=== PATIENT | male | born 1960 | race Caucasian/White ===

== ENCOUNTER 2021-11-05 09:02 | Outpatient (REF) | payer OTHER, SELFPAY ==
[2021-11-05 09:30] LABS: MANUAL DIFF FLAG NO
[2021-11-05 09:52] LABS: Basophils Percent Auto 0.4 % (0-2); Eosinophils Absolute Auto 0.3 X10*3/uL (0.0-0.4); Hematocrit 45.7 % (42.0-52.0); Hemoglobin 15.9 g/dl (14.0-18.0); Imm Gran Abs Auto 0.01 X10*3/uL (0.00-0.03); Imm Gran Pct Auto 0.2 % (0.0-0.4); Lymphocytes Absolute Auto 1.9 X10*3/uL (1.2-4.9); Lymphocytes Percent Auto 42.5 % (20-40); Mean Corpuscular HGB Conc 34.8 g/dl (31.0-36.0); Mean Corpuscular Hemoglobin 32.4 pg (27.0-33.0); Mean Corpuscular Volume 93.1 fL (80.0-98.0); Mean Platelet Volume 10.1 fL (9.4-12.4); Monocytes Absolute Auto 0.5 X10*3/uL (0.1-1.2); Monocytes Percent Auto 11.5 % (2-11); Neutrophils Absolute Auto 1.7 x10*3/uL (2.0-8.3); Neutrophils Percent Auto 38.4 % (45-73); Platelet Count 205 X10*3/uL (160-400); Red Blood Count 4.91 X10*6/uL (4.60-5.80); Red Cell Distribution Width 13.1 % (11.0-16.0); White Blood Count 4.5 X10*3/uL (4.8-10.8)
[2021-11-05 10:07] LABS: Estimated Average Glucose 117 mg/dL; Hemoglobin A1c % 5.7 %
[2021-11-05 10:15] LABS: Alanine Aminotransferase 126 U/L (0-40); Albumin Level 4.1 g/dL (3.5-5.0); Alkaline Phosphatase 53 U/L (39-117); Anion Gap 9 (12-20); Aspartate Amino Transferase 74 U/L (5-37); Bilirubin Total 0.9 mg/dL (0.0-1.0); Blood Urea Nitrogen 17 mg/dL (9-16); Calcium 9.5 mg/dL (8.4-10.2); Carbon Dioxide 29 mmol/L (22-29); Chloride 105 mmol/L (96-108); Cholesterol 168 mg/dL; Estimated Glomerular Filt Rate > 60; Glucose Fasting 101 mg/dL (60-99); HDL Cholesterol 41 mg/dL; LDL Cholesterol Calculated 109 mg/dl; Potassium 4.3 mmol/L (3.3-5.1); Sodium 139 mmol/L (135-145); Total Protein 7.5 g/dL (6.5-8.0); Triglycerides 91 mg/dL
[2021-11-05 10:37] LABS: Prostate Specific Antigen Scr 0.74 ng/mL (<0.05-4.0); TSH reflex Free T4 1.25 uIU/mL (0.32-4.0)
== END 2021-11-05 09:03 | disposition home or self-care (01) ==
LOC: HO.LAB 09:02
PROVIDERS: PCP Nurse Practitioner Family; Visit Provider Nurse Practitioner Family
DX: Z12.5 Encounter for screening for malignant neoplasm of prostate (principal); E78.00 Pure hypercholesterolemia, unspecified; R25.1 Tremor, unspecified; I10 Essential (primary) hypertension; E11.9 Type 2 diabetes mellitus without complications; Z76.89 Persons encountering health services in other specified circumstances
CPT/HCPCS: 36415; 80053; 80061; 83036; 84153; 84443; 85025

== ENCOUNTER 2021-11-24 08:24 | Outpatient (REF) | payer OTHER, SELFPAY ==
[2021-11-24 09:45] LABS: Alanine Aminotransferase 123 U/L (0-40); Albumin Level 4.3 g/dL (3.5-5.0); Alkaline Phosphatase 51 U/L (39-117); Aspartate Amino Transferase 76 U/L (5-37); Bilirubin Direct 0.4 mg/dL (0.0-0.5); Bilirubin Total 0.9 mg/dL (0.0-1.0); Gamma Glutamyl Transpeptidase 161 U/L (11-51); Total Protein 7.7 g/dL (6.5-8.0)
[2021-11-24 10:04] LABS: Folate 12.1 ng/mL (> or = 4.0); Vitamin B12 467 pg/mL (200-900)
[2021-11-28 10:26] LABS: Vitamin B6 13.8 ng/mL (2.1-21.7)
== END 2021-11-24 08:25 | disposition home or self-care (01) ==
LOC: HO.LAB 08:24
PROVIDERS: Visit Provider Nurse Practitioner Family
DX: R25.1 Tremor, unspecified (principal); R79.89 Other specified abnormal findings of blood chemistry
CPT/HCPCS: 36415; 80076; 82607; 82746; 82977; 84207

== ENCOUNTER 2022-01-13 14:44 | Outpatient (REF) | payer OTHER, SELFPAY ==
[2022-01-13 16:09] LABS: Syphilis Screen Nonreactive (Nonreactive)
[2022-01-14 08:35] LABS: HBS Num1 288.99 mIU/mL (0-7.99); HBc Num1 4.34 S/CO (0.00-0.79); ~HepC Num1 14.36 S/CO (0.00-0.79); ~Hepatitis B Surface Antibody REACTIVE (Nonreactive); ~Hepatitis C Antibody Reactive (Nonreactive)
[2022-01-14 08:47] LABS: Hepatitis B Surface Antigen Negative (Negative)
[2022-01-14 10:19] LABS: HBc Num2 4.42 S/CO; HBc Num3 4.39 S/CO; Hepatitis B Core Antibody Reactive (Nonreactive)
[2022-01-15 05:17] LABS: Lyme Abs Screen <0.90 index
[2022-01-15 09:03] LABS: HBsAGNum1 0.18 S/CO (0.00-0.99); Hepatitis A Antibody IgM 0.64 Index (0-0.79); ~Hepatitis A Antibody IgM Nonreactive (Nonreactive)
== END 2022-01-13 14:45 | disposition home or self-care (01) ==
LOC: HO.LAB 14:44
PROVIDERS: Visit Provider Psychiatry & Neurology Neurology
DX: G20 Parkinson's disease (principal)
CPT/HCPCS: 36415; 86617; 86618; 86704; 86706; 86709; 86780; 86803; 87340

== ENCOUNTER 2022-01-26 11:25 | Outpatient (REF) | payer OTHER, SELFPAY ==
[2022-01-27 08:00] LABS: ~HepC Num1 15.43 S/CO (0.00-0.79); ~Hepatitis C Antibody Reactive (Nonreactive)
[2022-01-30 16:06] LABS: HCV Log PCR 6.79 Log IU/mL (NOT DETECTED); HepC Viral Load 6230000 IU/mL (NOT DETECTED)
== END 2022-01-26 11:26 | disposition home or self-care (01) ==
LOC: HO.LAB 11:25
PROVIDERS: PCP Nurse Practitioner Family; Visit Provider Nurse Practitioner Family
DX: R79.89 Other specified abnormal findings of blood chemistry (principal)
CPT/HCPCS: 36415; 86803; 87522

== ENCOUNTER 2022-02-10 15:06 | Outpatient (REF) | payer OTHER, SELFPAY ==
[2022-02-10 16:07] LABS: INTERNATIONAL NORM RATIO 1.1 (0.9-1.1); Prothrombin Time 12.4 SEC (9.9-13.0)
[2022-02-11 08:45] LABS: HIV Num 1 2.65 S/CO (0.00-0.99)
[2022-02-11 10:43] LABS: HIV AB/AG Nonreactive (Nonreactive); HIV Num 2 0.07 S/CO; HIV Num 3 0.09 S/CO
[2022-02-12 03:52] LABS: Hepatitis A Antibody IgG REACTIVE (Nonreactive); ~Hepatitis A Antibody IgG 5.63 S/CO (0.00-0.99)
[2022-02-13 00:26] LABS: TS Negative Control Passed; TS Panel A 0; TS Panel B 0; TS Positive Control Passed; TSpotTB Negative (Negative)
[2022-02-14 11:11] LABS: Hepatitis B Viral DNA Qn - cp <1.00 NOT DETECTED Log IU/mL (NOT DETECTED); Hepatitis B Viral DNA Qn-IU/mL <10 NOT DETECTED IU/mL (NOT DETECTED)
[2022-02-15 18:01] LABS: Hepatitis C Genotype 1b
[2022-02-16 19:40] LABS: FIB-ALT 95 U/L (9-46); FIB-Alpha-2-Macroglobulin 413 mg/dL (106-279); FIB-Apolipoprotein A1 146 mg/dL (94-176); FIB-GGT 129 U/L (3-70); FIB-Haptoglobin 71 mg/dL (43-212); FIB-Total Bilirubin 0.4 mg/dL (0.2-1.2); Liver Fibrosis Stage F4; Nec Inflam Act Grade A3; Nec Inflam Act Score 0.72
[2022-02-18 00:53] LABS: Hepatitis Delta Antibody NEGATIVE
== END 2022-02-10 15:07 | disposition home or self-care (01) ==
LOC: HO.LAB 15:06
PROVIDERS: PCP Nurse Practitioner Family; Visit Provider Internal Medicine
DX: B19.20 Unspecified viral hepatitis C without hepatic coma (principal); B19.10 Unspecified viral hepatitis B without hepatic coma; R79.89 Other specified abnormal findings of blood chemistry; Z87.891 Personal history of nicotine dependence
CPT/HCPCS: 36415; 81596; 85610; 86481; 86692; 86708; 87389; 87517; 87902; 99202

== ENCOUNTER 2022-02-16 10:55 | Outpatient (REF) | payer OTHER, SELFPAY ==
--- NOTE | ~2022-02-16 | MR_ITS ---
MRI OF THE BRAIN WITHOUT IV CONTRAST INDICATION: Parkinson's disease. COMPARISON: None available. TECHNIQUE: Multiplanar multisequence MR imaging of the brain was obtained without IV contrast. FINDINGS: There is no hydrocephalus, extra-axial surface collection, or herniation. There is mild chronic microangiopathy. The major flow voids at the skull base are preserved. There is no acute infarct on diffusion-weighted imaging. There is no intracranial hemorrhage on the gradient recalled echo acquisition. The midline structures are normal. The cerebellar tonsils are normally positioned. The cerebellum and brainstem are normal. The craniocervical junction is normal. Osseous marrow signal intensity is homogenous. The visualized soft tissues are unremarkable. Mild mucosal thickening within the maxillary sinuses and ethmoid air cells bilaterally. MR/MR head/brain wo con IMPRESSION: - No acute intracranial findings. - There is mild chronic microangiopathy.
== END 2022-02-16 10:56 | disposition home or self-care (01) ==
LOC: HO.MRI 10:55
PROVIDERS: Visit Provider Psychiatry & Neurology Neurology
DX: G20 Parkinson's disease (principal)
CPT/HCPCS: 70551

== ENCOUNTER → 2022-03-23 14:38 | Outpatient (BNVA) | payer OTHER, SELFPAY | PROVIDERS: PCP Nurse Practitioner Family; Visit Provider Internal Medicine | DX: B19.20 Unspecified viral hepatitis C without hepatic coma (principal); B19.10 Unspecified viral hepatitis B without hepatic coma | CPT/HCPCS: 99212 ==

== ENCOUNTER → 2022-04-27 13:02 | Outpatient (BNVA) | payer OTHER, SELFPAY | PROVIDERS: PCP Nurse Practitioner Family; Visit Provider Internal Medicine | DX: B19.20 Unspecified viral hepatitis C without hepatic coma (principal) | CPT/HCPCS: 99212 ==

== ENCOUNTER 2022-05-13 08:43 | Outpatient (REF) | payer OTHER, SELFPAY ==
--- NOTE | ~2022-05-13 | US_ITS ---
EXAMINATION: US ABDOMEN COMPLETE CLINICAL INFORMATION: Unspecified viral hepatitis C without hepatic coma. COMPARISON: None TECHNIQUE: Real-time imaging of the abdominal viscera. FINDINGS: PANCREAS: Pancreas demonstrate atrophic appearance. ABDOMINAL AORTA: The proximal, mid, and distal segments are normal in caliber. INFERIOR VENA CAVA: Visualized portions are normal. LIVER: The liver is normal in size. The liver contour is normal. Increased hepatic echogenicity suggesting hepatic steatosis. No focal hepatic lesion. There is no intrahepatic biliary duct dilatation seen. GALLBLADDER: Normal. The gallbladder is physiologically distended without evidence of stones, sludge, polyps, wall thickening or pericholecystic fluid. COMMON BILE DUCT: Normal in caliber measuring 0.3 cm in diameter. RIGHT KIDNEY: Multiple echogenic foci without artifact possibly representing calculi. No hydronephrosis. No renal calculi or focal parenchymal lesions. The kidney measures 11.4 cm in maximum dimension. LEFT KIDNEY: Multiple echogenic foci without artifact possibly representing calculi. No hydronephrosis. No renal calculi or focal parenchymal lesions. The kidney measures 10.8 cm in maximum dimension. SPLEEN: Normal. The spleen measures 10.5 cm in maximum dimension. FREE FLUID: None. US/US abdomen complete IMPRESSION: 1. Increased hepatic echogenicity suggesting hepatic steatosis. 2. Bilateral multiple echogenic foci without artifact possibly representing calculi.
== END 2022-05-13 08:44 | disposition home or self-care (01) ==
LOC: HO.US 08:43
PROVIDERS: Visit Provider Internal Medicine
DX: B19.20 Unspecified viral hepatitis C without hepatic coma (principal)
CPT/HCPCS: 76700

== ENCOUNTER 2022-06-11 09:34 | Outpatient (REF) | payer OTHER, SELFPAY ==
[2022-06-14 12:43] LABS: HCV Log PCR <1.18 NOT DETECTED Log IU/mL (NOT DETECTED); HepC Viral Load <15 NOT DETECTED IU/mL (NOT DETECTED)
== END 2022-06-11 09:35 | disposition home or self-care (01) ==
LOC: HO.LAB 09:34
PROVIDERS: Visit Provider Internal Medicine
DX: B19.20 Unspecified viral hepatitis C without hepatic coma (principal)
CPT/HCPCS: 36415; 87522

== ENCOUNTER → 2022-06-29 10:04 | Outpatient (BNVA) | payer OTHER, SELFPAY | PROVIDERS: PCP Nurse Practitioner Family; Visit Provider Internal Medicine | DX: B19.20 Unspecified viral hepatitis C without hepatic coma (principal) | CPT/HCPCS: 99212 ==

== ENCOUNTER 2022-07-16 07:44 | Day surgery (SDC) | payer OTHER, SELFPAY ==
[2022-07-13 14:56] VITALS: BMI 29.7
--- NOTE | 2022-07-15 13:37 | P.CONAN_ITS ---
Documented by User: Sharon Ryan NP 07/15/22 13:39 HPI - Anesthesia Eval Consult details Narrative: 62yo M for Colonoscopy PMFSH Active Problems Active Problems: All Active Problems (Updated 06/29/22 @ 22:41 by Torri Landaverde MD) Hepatitis B (Acute) Hepatitis C virus infection (Acute) Elevated LFTs (Acute) Anxiety and depression (Acute) Tremor of right hand (Acute) Elevated blood pressure reading (Acute) Encounter to establish care (Acute) Past Medical History Medical History Hepatitis B Parkinson disease Family History Family History Mother Vaginal cancer Father Diabetes Family/Other Mental health disorder Surgical History Surgical History History of cardiac catheterization History of knee surgery Social History Social History Housing: Apartment Alcohol intake: former Patient Tobacco Use Status: Former Tobacco user Tobacco use type: Cigarette e-Cigarette/Vaping Use: Never Used Second Hand Smoke Exposure: No Use of substances other than those prescribed or required for medical reasons: No Are you DNR?: No Advance Directives: No Advance Directives Information Provided: Yes service: No Current occupational status: retired Cognitive needs: No Hearing needs: No Vision needs: No Meds Allergies Allergy/AdvReac Type Severity Reaction Status Date / Time codeine Allergy Mild nausea Verified 06/29/22 10:12 Home Medications Medication Instructions Recorded Confirmed Last Taken Type carbidopa 25 mg-levodopa 100 mg 1 tab PO TID 01/19/22 07/16/22 History tablet sertraline 25 mg tablet 25 mg PO DAILY 06/29/22 07/16/22 History trihexyphenidyl 2 mg tablet 2 mg PO DAILY 06/29/22 Unknown History Exam Exam Date and Time: July 15, 2022 1337 Height,Weight and Vital Signs: Height 5 ft 7 in Weight 86.183 kg Assessment and Plan Assessment Anesthesia Assessment: Chart Reviewed Documented by User: Odalis Jackson MD 07/16/22 10:12 [facility] Past Medical History Medical History Hepatitis B Parkinson disease Family History Family History Mother Vaginal cancer Father Diabetes Family/Other Mental health disorder Family history of problems with anesthesia: No Surgical History Surgical History History of cardiac catheterization History of knee surgery History of Problems with Anesthesia: No Social History Social History Housing: Apartment Alcohol intake: former Patient Tobacco Use Status: Former Tobacco user Tobacco use type: Cigarette e-Cigarette/Vaping Use: Never Used Second Hand Smoke Exposure: No Use of substances other than those prescribed or required for medical reasons: No Are you DNR?: No Advance Directives: No Advance Directives Information Provided: Yes service: No Current occupational status: retired Cognitive needs: No Hearing needs: No Vision needs: No Meds Allergies Allergy/AdvReac Type Severity Reaction Status Date / Time codeine Allergy Mild nausea Verified 06/29/22 10:12 Home Medications Medication Instructions Recorded Confirmed Last Taken Type carbidopa 25 mg-levodopa 100 mg 1 tab PO TID 01/19/22 07/16/22 History tablet sertraline 25 mg tablet 25 mg PO DAILY 06/29/22 07/16/22 History trihexyphenidyl 2 mg tablet 2 mg PO DAILY 06/29/22 Unknown History Exam Airway Mallampati Class: III (Missing one tooth on top, limited mouth opening) TM Dist: >3cm Neck ROM: Full Heart: rrr Lungs: cta Assessment and Plan Assessment Anesthesia Assessment: Anesthesia Plan Discussed and Chart Reviewed Final Anesthetic Review Family History of Problems with Anesthesia: No History of Problems with Anesthesia: No NPO: Yes ASA Class: III Final Preanesthetic Review: No Changes in Pt Med Stat, Meds/Allgs Chart Reviewed and Consent Obtained/Reviewed Patient Risk: Intermediate Procedure Risk: Intermediate Anesthetic Plan Anesthetic Plan: MAC: Disposition: Standard PACU
[2022-07-16 08:04] VITALS: BP 131/89; PULSE 92; RESP 16; TEMP 36.8; O2SAT 98; BMI 28.1
[2022-07-16 08:18] VITALS: BMI 28.1
[2022-07-16] MEDS: Lactated Ringers 1,000 ML 100 ML IVCONT (08:54)
--- NOTE | 2022-07-16 10:09 | MHC.SHP ---
Pre-Procedural Eval Section A Date of Service: 07/16/22 The patient is an INPATIENT: No The History & Physical has been completed within 30 days and I have reviewed it.: No Section B Chief Complaint: screening Details of Present Illness: Colon cancer screening Relevant Family History (Specify if Yes): No Relevant Social History: Tobacco Use (Formal smoker) Present Medications: see Short Stay Collaborative assessment Medical History: Significant History (Parkinson's disease, anxiety and depression, hepatitis-B) History of Previous Operations: Relevant previous surgery/procedure and date(s) (History of cardiac catheterization History of knee surgery) Allergies: Allergies Allergy/AdvReac Type Severity Reaction Status Date / Time codeine Allergy Mild nausea Verified 06/29/22 10:12 Review of Systems Sugical H&P ROS: Negative: Constitution, Cardiovascular, Respiratory and Gastrointestinal Exam Surgical H&P Exam: Normal: Heart, Normal: Lungs, Normal: Extremities and Normal: Abdomen and Significant Findings: Neurological (tremors due to Parkinson's disease) Plan Diagnosis/Plan: Unchanged I have reviewed the history and physical and performed a pertinent physical examination on my patient. No changes have occurred unless specified.
--- NOTE | 2022-07-16 10:18 | W.PM.OPN ---
Operative Note Operative Note Date of Service: 07/16/22 Narrative: Pre-op diagnosis: Pt was referred for Direct Access Colonoscopy by his PCP. Colon cancer screening (1st colonoscopy). Patient denies symptoms of change in bowel habits or rectal bleeding. Patient denies any personal or family history of colon polyps or colon cancer Post-op diagnosis:?other (Colon polyp, diverticulosis) Procedure: COLONOSCOPY TILL CECUM WITH BIOPSIES Consent: Indications for the procedure and potential complications of bleeding, perforation, reaction to medications and missed diagnosis were discussed with the patient and informed consent was obtained. Instrument: Olympus PCF H 190 L variable stiffness pediatric colonoscope Monitoring: Vital signs and clinical assessment, intermittent blood pressure monitoring, continuous EKG monitoring, Pulse oximetry and Carbon Dioxide monitoring were done throughout the procedure. Colon withdrawl time was 29 minutes. Procedure: The patient was placed in the left lateral decubitis position and pre-procedure medications were administered. After a digital rectal examination of the ano-rectum, the video colonoscope was inserted into the rectum and advanced through the colon to the cecum. The colonoscope was slowly withdrawn in a retrograde panoramic fashion and the colon mucosa was carefully examined including a retroflexed view of the rectum. Findings and interventions are described below. Procedure Difficulty: Without difficulty Findings: Terminal Ileum: Not evaluated Cecum:? Normal Ascending Colon:? Normal Transverse Colon:? A 5-6 mm sessile polyp removed with a cold bx Descending Colon:? Normal Sigmoid Colon:? Normal Rectum:? Normal Ano-rectum:? Moderate internal hemorrhoids Colon preparation:? Good after copious irrigation and fair in some areas of the colon and rectum due to undigested vegetable matter which could not be suctioned Impression and Post Procedure Diagnosis: Colonoscopy Findings: One small polyp removed Moderate hemorrhoids on retroflexed exam. Plan: Pt will be sent a letter with pathology results Repeat Colonoscopy interval based on path results - in 3 years if polyps are adenomatous and due to fair prep in some areas of the colon (needs dulcolax 2 tab daily starting 5 days prior to the colonoscopy for future colonoscopies). Above findings were reviewed with the patient and colon polyps handout? was given in the discharge area Surgeon: Demi Yoon MD Anesthesia:?MAC Was an Fire Alarm Technician used for this Procedure?:?Yes Fire Alarm Technician:?Ruel Salinas Estimated blood loss (mL):?0 Pathology:?other (A- TRANSVERSE COLON POLYP) Condition:?stable Disposition:?PACU
[2022-07-16 11:09] VITALS: BP 102/66; PULSE 77; RESP 16; TEMP 36.8; O2SAT 98
[2022-07-16 11:24] VITALS: BP 118/82; PULSE 77; RESP 16; TEMP 36.8; O2SAT 96
== END 2022-07-16 11:25 | disposition home or self-care (01) ==
PROVIDERS: Visit Provider Internal Medicine Gastroenterology
PROC: 0DJD8ZZ Inspection of Lower Intestinal Tract, Via Natural or Artificial Opening Endoscopic (ICD-10-PCS; CPT 45378; principal; 2022-07-16 09:20)
DX: Z12.11 Encounter for screening for malignant neoplasm of colon (principal); K63.5 Polyp of colon; K57.30 Diverticulosis of large intestine without perforation or abscess without bleeding; K64.8 Other hemorrhoids; G20 Parkinson's disease; B19.10 Unspecified viral hepatitis B without hepatic coma; F41.8 Other specified anxiety disorders; Z79.899 Other long term (current) drug therapy; Z88.8 Allergy status to other drugs, medicaments and biological substances; Z98.890 Other specified postprocedural states; Z87.891 Personal history of nicotine dependence
CPT/HCPCS: 45380; 88305

== ENCOUNTER 2022-07-27 07:09 | Outpatient (REF) | payer OTHER, SELFPAY ==
--- NOTE | ~2022-07-27 | XR_ITS ---
EXAMINATION: XR SHOULDER, LEFT CLINICAL INFORMATION: Left shoulder pain COMPARISON: None TECHNIQUE: AP external rotation, Grashey, scapular Y, and axillary views of the left shoulder. FINDINGS: Mild glenohumeral osteoarthritis with small marginal osteophytes. No fracture, alignment. Mild osteoarthritis of the acromioclavicular joint. XR/XR shoulder LT min 2V IMPRESSION: Mild glenohumeral and acromioclavicular osteoarthritis.
[2022-07-27 08:07] LABS: Alanine Aminotransferase 16 U/L (0-40); Albumin Level 4.4 g/dL (3.5-5.0); Alkaline Phosphatase 58 U/L (39-117); Anion Gap 15 (12-20); Aspartate Amino Transferase 17 U/L (5-37); Bilirubin Direct 0.3 mg/dL (0.0-0.5); Bilirubin Total 0.8 mg/dL (0.0-1.0); Blood Urea Nitrogen 12 mg/dL (9-16); Calcium 9.3 mg/dL (8.4-10.2); Carbon Dioxide 25 mmol/L (22-29); Chloride 106 mmol/L (96-108); Estimated Glomerular Filt Rate > 60; Glucose Random 99 mg/dL (60-115); Sodium 142 mmol/L (135-145); Total Protein 7.6 g/dL (6.5-8.0)
[2022-07-27 08:28] LABS: TSH reflex Free T4 1.34 uIU/mL (0.32-4.0)
[2022-07-27 08:43] LABS: HIV AB/AG Nonreactive (Nonreactive); HIV Num 1 0.07 S/CO (0.00-0.99)
== END 2022-07-27 07:10 | disposition home or self-care (01) ==
LOC: HO.LAB 07:09
PROVIDERS: PCP Physician Assistant; Visit Provider Physician Assistant
DX: M25.512 Pain in left shoulder (principal); B19.20 Unspecified viral hepatitis C without hepatic coma; R63.4 Abnormal weight loss; R79.89 Other specified abnormal findings of blood chemistry; I10 Essential (primary) hypertension; G89.29 Other chronic pain; Z11.3 Encounter for screening for infections with a predominantly sexual mode of transmission
CPT/HCPCS: 36415; 73030; 80048; 80076; 84443; 87389

== ENCOUNTER 2022-08-06 13:10 | Outpatient (REF) | payer OTHER, SELFPAY ==
[2022-08-06 13:42] LABS: COVID-19 Test Negative (Negative)
== END 2022-08-06 13:11 | disposition home or self-care (01) ==
LOC: HO.LAB 13:10
PROVIDERS: Visit Provider Internal Medicine
DX: Z20.822 Contact with and (suspected) exposure to COVID-19 (principal)
CPT/HCPCS: 87635; C9803

== ENCOUNTER → 2022-10-07 12:59 | Outpatient (BNVA) | payer OTHER, SELFPAY | PROVIDERS: PCP Physician Assistant Medical; Visit Provider Orthopaedic Surgery | DX: M25.812 Other specified joint disorders, left shoulder (principal) | CPT/HCPCS: 20610; 99202; J1100 ==

== ENCOUNTER 2022-10-14 11:59 | Outpatient (REF) | payer OTHER, SELFPAY ==
--- NOTE | ~2022-10-14 | XR_ITS ---
EXAMINATION: X-RAY BILATERAL KNEES X-RAY RIGHT KNEE CLINICAL INFORMATION: Knee pain COMPARISON: None TECHNIQUE: AP bilateral knees one view. Right knee 2 views. FINDINGS: Right knee: Moderate to severe lateral compartment arthritis, joint space loss. Mild-moderate medial compartment arthritis. Mild patellofemoral compartment arthritis with marginal spurring. Small joint fluid. No acute fracture or dislocation is seen. No abnormal soft tissue calcification. Left knee: Mild medial compartment arthritis. XR/XR knee RT 2V IMPRESSION: Right knee: Tricompartment osteoarthritis. Moderate-severe lateral compartment arthritis. Left knee: Mild medial compartment arthritis.
--- NOTE | ~2022-10-14 | XR_ITS ---
EXAMINATION: X-RAY BILATERAL KNEES X-RAY RIGHT KNEE CLINICAL INFORMATION: Knee pain COMPARISON: None TECHNIQUE: AP bilateral knees one view. Right knee 2 views. FINDINGS: Right knee: Moderate to severe lateral compartment arthritis, joint space loss. Mild-moderate medial compartment arthritis. Mild patellofemoral compartment arthritis with marginal spurring. Small joint fluid. No acute fracture or dislocation is seen. No abnormal soft tissue calcification. Left knee: Mild medial compartment arthritis. XR/XR knee standing BI IMPRESSION: Right knee: Tricompartment osteoarthritis. Moderate-severe lateral compartment arthritis. Left knee: Mild medial compartment arthritis.
== END 2022-10-14 12:00 | disposition home or self-care (01) ==
LOC: HO.HOSX 11:59
PROVIDERS: Visit Provider Orthopaedic Surgery
DX: M17.11 Unilateral primary osteoarthritis, right knee (principal)
CPT/HCPCS: 20610; 73560; 73565; 99212; J1100

== ENCOUNTER → 2022-11-05 10:39 | Outpatient (BNVA) | payer OTHER, MEDICARE, SELFPAY | PROVIDERS: PCP Physician Assistant Medical; Visit Provider Orthopaedic Surgery | DX: M17.11 Unilateral primary osteoarthritis, right knee (principal) | CPT/HCPCS: 99212 ==

== ENCOUNTER → 2022-11-19 10:25 | Outpatient (BNVA) | payer OTHER, SELFPAY | PROVIDERS: PCP Physician Assistant; Visit Provider Orthopaedic Surgery | DX: M17.11 Unilateral primary osteoarthritis, right knee (principal); G20 Parkinson's disease; B19.10 Unspecified viral hepatitis B without hepatic coma; Z98.890 Other specified postprocedural states | CPT/HCPCS: 20610; 99212; J7318 ==

== ENCOUNTER 2023-05-26 15:18 | Outpatient (AMB) | payer MEDICARE, SELFPAY ==
[2023-05-26 15:22] VITALS: BP 132/84; PULSE 100; O2SAT 97; BMI 26.8
--- NOTE | 2023-05-26 15:22 | A.OFFPC_ITS ---
Vital Signs 05/26/23 15:22 Height 5 ft 7 in Weight 171 lb 2 oz BMI 26.8 BP 132/84 Blood Pressure Location Lt brachial Position Sitting Pulse 100 Pulse Source Pulse Oximeter Pulse Oximetry (%) 97 Oxygen Delivery Method Room Air Intake Visit Reasons: 6mth f/u Allergies codeine Allergy (Mild, Verified 05/26/23 15:44) nausea Medication List - Last Reconciled 05/26/23 by Fabio Nieto PA-C amlodipine 5 mg PO DAILY 90 days blood pressure test kit-medium As directed carbidopa-levodopa 25-100 mg 1 tab PO TID sertraline 25 mg PO DAILY trihexyphenidyl 2 mg PO DAILY Tobacco use date assessed: 05/26/23 Dental Screening Dental Screen Date: 05/26/23 Did you have a dental visit in the last 12 months?: No Did you have a dental problem in the last 6 months where you did not have access to dental care?: No Was dental information given to patient?: Patient declined HPI 6mth f/u HPI0 Details Patient is a 63-year-old male here today for follow-up visit.? Patient has a past medical history significant for parkinsonian syndrome, hepatitis-C . Concern--> HAs developed a rash over his torso after swimming in the ocean. Rash has been evident over the last month. He reports the rash is very itchy. . Hypertension: Blood pressure acceptable today in office. Continues on amlodipine 5 mg with good affect. He denies any chest discomfort, chest pain or dizziness. Parkinson's disease: Patient followed by a neurologist (Dr. christianson) and has been on carbidopa levodopa with improvement of his tremor. .. Hepatitis-C:? Patient has a history hepatitis C, recently treated by Infectious Disease specialist and most recent hepatitis C viral load undetectable. Laboratory Tests 11/05/21 02/10/22 06/11/22 09:28 15:55 09:43 RBC 4.91 Creatinine Liver Fibrosis ALT 95 H Hep C Viral Load <15 NOT DETECTED Hep C Viral Load L og <1.18 NOT DETECTE D 07/27/22 07:21 RBC Creatinine 0.78 Liver Fibrosis ALT Hep C Viral Load Hep C Viral Load L og PFSH Medical History Hepatitis B Parkinson disease Surgical History History of cardiac catheterization History of knee surgery Family History Mother Vaginal cancer Father Diabetes Family/Other Mental health disorder Social History Housing: Apartment Alcohol intake: former Patient Tobacco Use Status: Former Tobacco user Tobacco use type: Cigarette e-Cigarette/Vaping Use: Never Used Second Hand Smoke Exposure: No service: No Current occupational status: retired Cognitive needs: No Hearing needs: No Vision needs: No Questionnaire PHQ-9 Over the last 2 weeks, how often have you been bothered by any of the following problems? 2. Feeling down, depressed, or hopeless: nearly every day 3. Trouble falling or staying asleep, or sleeping too much: not at all 4. Feeling tired or having little energy: more than half the days 5. Poor appetite or overeating: nearly every day 6. Feeling bad about yourself - or that you are a failure or have let yourself or your family down: nearly every day 7. Trouble concentrating on things, such as reading the newspaper or watching television: more than half the days 8. Moving or speaking so slowly that other people could have noticed. Or the opposite - being so fidgety or restless that you have been moving around a lot more than usual: nearly every day 9. Thoughts that you would be better off or of hurting yourself in some way: not at all Depression Screening Interpretation: Positive Source: Developed by Drs. Luis Verma, Rica Borden, Logan Montes and colleagues, with an educational emili from [employer]. Thrive Questionnaire Date Thrive assessed: 05/26/23 I am a: Patient What is your living situation today?: I have a steady place to live Within the past 12 months, did the food you bought not last and you didn't have the money to get more?: Never true Within the past 12 months, did you worry whether your food would run out before you got money to buy more?: Never true Do you have trouble paying for medicines?: No Do you have trouble getting transportation to medical appointments?: No Do you have trouble paying your heating and electricity bill?: No Do you have trouble taking care of your child, family member or friend?: No Do you have trouble with day-to-day activities such as bathing, preparing meals, shopping, managing finances, etc.?: No Are you currently unemployed and looking for a job?: No Are you interested in more education?: No Currently or been in a relationship where the following occur: no concerns reported AUDIT C Alcohol Use Questionnaire (AUDIT-C) 1. How often do you have a drink containing alcohol?: Never 3. How often do you have six or more drinks on one occasion?: Never Total Score: 0 TOMER-7 AMB Questionnaire TOMER-7 Date TOMER - 7 assessed: 05/26/23 Feeling nervous, anxious, or on edge: 2 = More than half the days Not being able to stop or control worryin = More than half the days Worrying too much about different things: 0 = Not at all Trouble relaxin = More than half the days Being so restless that it is hard to sit still: 0 = Not at all Becoming easily annoyed or irritable: 0 = Not at all Feeling afraid as if something awful might happen: 1 = Several days Total TOMER-7 score (0-4 normal; 5-9 mild; 10-14 moderate; 15-21 severe): 7 Source: Developed by Drs. Luis Verma, Rica Borden, Logan Montes and colleagues, with an educational emili from [employer]. TOMER-7 Assessment Billing TOMER-7 Assessment Tool: TOMER-7 Assessment [id number] Review of Systems Const Denies headache(s) Eyes Denies loss of vision ENT Denies vertigo, Denies dizziness, Denies headache(s) and Denies sore throat Card Denies chest pain, Denies leg edema and Denies lightheadedness Resp Denies cough, Denies hemoptysis and Denies wheezing GI Denies abdominal pain, Denies melena, Denies constipation, Denies diarrhea and D enies vomiting Denies dysuria, Denies urinary frequency and Denies urinary urgency Musc Denies arthralgias, Denies joint swelling, Denies numbness and Denies tingling Neuro Denies Abnormal speech present, Denies behavioral changes, Denies vertigo, Denies dizziness, Denies headache(s), Denies loss of vision, Denies memory loss, Denies numbness and Denies tingling Psych Denies anxiety, Denies behavioral changes, Denies depression, Denies memory loss and Denies panic attacks Matthieu/Lymph Denies easy bleeding and Denies easy bruising Aller/Immun Denies wheezing Physical exam (Primary Care) Vital Signs: Last Vital Signs Pulse 100 05/26/23 15:22 BP 132/84 05/26/23 15:22 Pulse Ox 97 05/26/23 15:22 Oxygen Delivery Method Room Air 05/26/23 15:22 BMI result Body Mass Index 26.8 Tobacco/Smoking Status: Tobacco use Status Tobacco use date assessed 05/26/23 05/26/23 15:41 Patient Tobacco Use Status Former Tobacco user 05/26/23 15:22 Tobacco use type Cigarette 05/26/23 15:22 e-Cigarette/Vaping Use Never Used 05/26/23 15:22 Depression Screening Interpretation: Positive Thrive Assessment: Date of Thrive Assessment Date Thrive assessed 05/26/23 05/26/23 15:41 Currently or been in a relationship where the following occur: no concerns reported Const General: healthy appearing, no acute distress, alert and awake Nutritional Appearance: well nourished Orientation/consciousness: oriented to person, oriented to place and oriented to time HENMT Ears: TM's normal bilaterally General nose exam: Normal nasal mucous membranes and turbinates present Eyes Conjunctivae: conjunctivae normal Sclerae: sclerae normal Pupils: Equal, round and reactive pupils present Neck Neck: Yes no lymphadenopathy and Yes no JVD Thyroid: Thyroid normal Carotids: no bruits Chest Chest/axillae images: 1. WELL DEMARCATED ERYTHEMATOUS RASH OVER UPPER BILATERAL CHEST Resp Effort & Inspection: normal respiratory effort and not tachypneic Auscultation: no crackles, no rales, no rhonchi and no wheezes Cardio Rate: regular rate Rhythm: regular rhythm Heart sounds: no murmurs and normal S1 and S2 GI Palpation (GI): Soft to palpation, nontender, no hepatomegaly and no splenomegaly Auscultation: normal bowel sounds Skin General skin exam: no rashes or lesions noted and dry skin Neuro General: oriented to person, oriented to place and oriented to time Cranial nerves: Yes Equal, round and reactive pupils present Speech: No Abnormal speech present Gait exam (Neuro): Normal gait present Motor exam (neuro): no tremor noted Extrem Right upper extremity: full ROM Left upper extremity: full ROM Right lower extremity: full ROM; no edema Left lower extremity: full ROM; no edema Psych Mental Status: mental status grossly normal Speech and movement: Normal speech and movement present Affect: normal affect Attitude: cooperative Thought process: Normal thought process present Assessment and Plan Assessment & Plan (1) Parkinson disease: Code(s): G20 - Parkinson's disease Plan: Patient continues to follow Neurology and continues on medication for his Parkinson's which has been well controlled. He denies any gait instability or recent falls. (2) HTN (hypertension): Code(s): I10 - Essential (primary) hypertension Qualifiers: Hypertension type: primary hypertension Qualified Code(s): I10 - Essential (primary) hypertension Plan: Patient's blood pressure acceptable today in office. Will continue his current dose of amlodipine 5 mg with goal blood pressure remain below 140/90 (3) Acute dermatitis: Code(s): L30.9 - Dermatitis, unspecified Plan: As per HPI patient recent swim in the ocean and has developed a rash over his upper chest. He reports the rash is very itchy. Will supply patient with steroid cream and antibiotics (4) Insomnia: Code(s): G47.00 - Insomnia, unspecified Qualifiers: Insomnia type: primary Qualified Code(s): F51.01 - Primary insomnia Plan: He reports having trouble sleeping. He will like to try hydroxyzine 25 mg before bed to help sleep. Orders: Orders Microalbumin, Random (w Creat) Today I10 - Essential (primary) hypertension Comprehensive [place]. Panel Fast Today I10 - Essential (primary) hypertension Complete Blood Count no Diff Today I10 - Essential (primary) hypertension Prostate Specific Antigen Scr Today I10 - Essential (primary) hypertension, Z12.5 - Encounter for screening for malignant neoplasm of prostate Medications: New triamcinolone acetonide 0.1% 1 appl topical DAILY 15 days 80 grams 1RF L30.9 - Dermatitis, unspecified hydroxyzine HCl 25 mg PO BEDTIME 30 days 30 tabs 0RF G47.00 - Insomnia, unspecified doxycycline monohydrate 100 mg PO BID 7 days 14 caps 0RF L30.9 - Dermatitis, unspecified Coding Level of Care Code Est Pt Level 4 (66113) Diagnoses Parkinson disease G20 HTN (hypertension) I10 Hypertension type: primary hypertension Acute dermatitis L30.9 Insomnia F51.01 Insomnia type: primary Additional Codes TOMER-7 Assessment Billing - TOMER-7 Assessment Tool: TOMER-7 Assessment [id number] ([id number])
== END 2023-05-26 15:56 | disposition home or self-care (01) ==
PROVIDERS: PCP Physician Assistant; Visit Provider Physician Assistant
DX: G20 Parkinson's disease (principal); I10 Essential (primary) hypertension; L30.9 Dermatitis, unspecified; F51.01 Primary insomnia
CPT/HCPCS: 99214

== ENCOUNTER 2023-11-26 07:55 | Outpatient (REF) | payer MEDICARE, SELFPAY ==
[2023-11-26 09:01] LABS: Hematocrit 43.7 % (42.0-52.0); Hemoglobin 15.1 g/dl (14.0-18.0); Mean Corpuscular HGB Conc 34.6 g/dl (31.0-36.0); Mean Corpuscular Hemoglobin 31.2 pg (27.0-33.0); Mean Corpuscular Volume 90.3 fL (80.0-98.0); Mean Platelet Volume 10.9 fL (9.4-12.4); Platelet Count 234 X10*3/uL (160-400); Red Blood Count 4.84 X10*6/uL (4.60-5.80); Red Cell Distribution Width 13.8 % (11.0-16.0); White Blood Count 5.4 X10*3/uL (4.8-10.8)
[2023-11-26 09:37] LABS: Alanine Aminotransferase 17 U/L (0-40); Albumin Level 4.3 g/dL (3.5-5.0); Alkaline Phosphatase 70 U/L (39-117); Anion Gap 11 (12-20); Aspartate Amino Transferase 15 U/L (5-37); Bilirubin Total 0.5 mg/dL (0.0-1.0); Blood Urea Nitrogen 13 mg/dL (9-16); Calcium 9.2 mg/dL (8.4-10.2); Carbon Dioxide 28 mmol/L (22-29); Chloride 105 mmol/L (96-108); Cholesterol 174 mg/dL (<200); Estimated Glomerular Filt Rate > 60; Glucose Fasting 90 mg/dL (60-99); HDL Cholesterol 49 mg/dL (>40); LDL Cholesterol Calculated 114 mg/dL (<100); Potassium 4.1 mmol/L (3.3-5.1); Sodium 140 mmol/L (135-145); Total Protein 7.6 g/dL (6.5-8.0); Triglycerides 55 mg/dL (<150)
[2023-11-26 09:55] LABS: TSH reflex Free T4 1.04 uIU/mL (0.32-4.0)
[2023-11-26 09:58] LABS: Prostate Specific Antigen Scr 1.17 ng/mL (<0.05-4.0)
[2023-11-26 10:38] LABS: Creatinine Urine 178.31 mg/dL; Microalbum/Creatinine Ratio Ur 7.8 ug/mg cr (<30)
== END 2023-11-26 07:56 | disposition home or self-care (01) ==
LOC: HO.LAB 07:55
PROVIDERS: PCP Physician Assistant; Visit Provider Physician Assistant
DX: I10 Essential (primary) hypertension (principal); Z12.5 Encounter for screening for malignant neoplasm of prostate
CPT/HCPCS: 36415; 80053; 80061; 82043; 82570; 84153; 84443; 85027

== ENCOUNTER 2023-11-29 08:34 | Outpatient (AMB) | payer MEDICARE, SELFPAY ==
[2023-11-29 08:41] VITALS: BP 116/64; PULSE 95; O2SAT 99; BMI 25.7
--- NOTE | 2023-11-29 08:41 | MHC.PC.OV ---
Vital Signs 11/29/23 08:41 Height 5 ft 7 in Weight 164 lb BMI 25.7 BP 116/64 Blood Pressure Location Lt brachial Position Sitting Pulse 95 Pulse Source Pulse Oximeter Pulse Oximetry (%) 99 Oxygen Delivery Method Room Air Intake Visit Reasons: 6mth f/u Executive Creative Director: Not Required per policy Accompanied by: Self / Same As Patient Allergies codeine Allergy (Mild, Verified 11/29/23 08:49) nausea Medication List - Last Reconciled 11/29/23 by Fabio Nieto PA-C amlodipine 5 mg PO DAILY 90 days blood pressure test kit-medium As directed carbidopa-levodopa 25-100 mg 2 tabs PO TID doxycycline monohydrate 100 mg PO BID 7 days gabapentin 300 mg PO DAILY sertraline 50 mg PO DAILY triamcinolone acetonide 0.1% 1 appl topical DAILY 15 days Tobacco use date assessed: 11/29/23 Fall risk assessment: No Falls in past year Last assessed Fall Risk: 11/29/23 Dental Screening Dental Screen Date: 11/29/23 Did you have a dental visit in the last 12 months?: Yes Did you have a dental problem in the last 6 months where you did not have access to dental care?: No Was dental information given to patient?: Patient has dentist HPI 6mth f/u HPI Details Patient is a 63-year-old male here today for an annual physical? Patient has a past medical history significant for parkinsonian syndrome, hepatitis-C . Concern--> has been more depressed as of late due to the passing of his . Has lost a few lb since last office visit. Family concerned about his depression and interested in cognitive behavioral therapy. Also been having issues with pain with his right knee. He follow-up with orthopedics whom recommends physical therapy. Not a candidate for knee replacement at this time. . Hypertension: Blood pressure acceptable today in office. Continues on amlodipine 5 mg with good affect. He denies any chest discomfort, chest pain or dizziness. Parkinson's disease: Patient followed by a neurologist (Dr. christianson) and has been on carbidopa levodopa with improvement of his tremor. Recent dose of carbidopa levodopa was increased. .. Hepatitis-C:? Patient has a history hepatitis C, recently treated by Infectious Disease specialist and most recent hepatitis C viral load undetectable. Vaccine : Needs Tdap, PCV- and shingles -is considering Colon cancer: Done in 2021, needed repeat in 3 years Laboratory Tests 11/05/21 11/26/23 11/26/23 09:28 08:15 08:15 RBC 4.84 Creatinine AST Cholesterol 174 LDL Cholesterol, C alc 109 114 H PSA Screen 1.17 TSH 1.04 Urine Microalbumin 11/26/23 11/26/23 08:15 08:17 RBC Creatinine 0.73 AST 15 Cholesterol LDL Cholesterol, C alc PSA Screen TSH Urine Microalbumin 14.0 Laboratory Tests 11/05/21 02/10/22 06/11/22 09:28 15:55 09:43 RBC 4.91 Creatinine Liver Fibrosis ALT 95 H Hep C Viral Load <15 NOT DETECTED Hep C Viral Load L og <1.18 NOT DETECTE D 07/27/22 07:21 RBC Creatinine 0.78 Liver Fibrosis ALT Hep C Viral Load Hep C Viral Load L og [facility] Medical History Parkinson disease Hepatitis B Surgical History History of cardiac catheterization History of knee surgery Family History Mother Vaginal cancer Father Diabetes Family/Other Mental health disorder Social History Housing: Apartment Alcohol intake: former Patient Tobacco Use Status: Former Tobacco user Tobacco use type: Cigarette e-Cigarette/Vaping Use: Never Used Second Hand Smoke Exposure: No service: No Current occupational status: retired Cognitive needs: No Hearing needs: No Vision needs: Yes Questionnaire PHQ-9 Over the last 2 weeks, how often have you been bothered by any of the following problems? 2. Feeling down, depressed, or hopeless: nearly every day 3. Trouble falling or staying asleep, or sleeping too much: not at all 4. Feeling tired or having little energy: more than half the days 5. Poor appetite or overeating: nearly every day 6. Feeling bad about yourself - or that you are a failure or have let yourself or your family down: nearly every day 7. Trouble concentrating on things, such as reading the newspaper or watching television: more than half the days 8. Moving or speaking so slowly that other people could have noticed. Or the opposite - being so fidgety or restless that you have been moving around a lot more than usual: nearly every day 9. Thoughts that you would be better off or of hurting yourself in some way: not at all Depression Screening Interpretation: Positive Depression Screening Follow-up: Existing condition and Community Mental Health Worker F/U Depression Screening Done: Yes 03747 - PHQ-9 Billing: Yes Source: Developed by Drs. Luis Verma, Rica Borden, Logan Montes and colleagues, with an educational emili from [employer]. Thrive Questionnaire Date Thrive assessed: 11/29/23 I am a: Patient What is your living situation today?: I have a steady place to live Within the past 12 months, did the food you bought not last and you didn't have the money to get more?: Never true Within the past 12 months, did you worry whether your food would run out before you got money to buy more?: Never true Do you have trouble paying for medicines?: No Do you have trouble getting transportation to medical appointments?: No Do you have trouble paying your heating and electricity bill?: No Do you have trouble taking care of your child, family member or friend?: No Do you have trouble with day-to-day activities such as bathing, preparing meals, shopping, managing finances, etc.?: No Are you currently unemployed and looking for a job?: No Are you interested in more education?: No Please select the resources that you would like help with: None THRIVE Score: 0 AUDIT C Alcohol Use Questionnaire (AUDIT-C) 1. How often do you have a drink containing alcohol?: Never 3. How often do you have six or more drinks on one occasion?: Never Total Score: 0 TOMER-7 AMB Questionnaire TOMER-7 Date TOMER - 7 assessed: 11/29/23 Feeling nervous, anxious, or on edge: 0 = Not at all Not being able to stop or control worryin = Not at all Worrying too much about different things: 0 = Not at all Trouble relaxin = Not at all Being so restless that it is hard to sit still: 0 = Not at all Becoming easily annoyed or irritable: 0 = Not at all Feeling afraid as if something awful might happen: 0 = Not at all Total TOMER-7 score (0-4 normal; 5-9 mild; 10-14 moderate; 15-21 severe): 0 Source: Developed by Drs. Luis Verma, Rica Borden, Logan Montes and colleagues, with an educational emili from [employer]. TOMER-7 Assessment Billing TOMER-7 Assessment Tool: TOMER-7 Assessment 82057 Review of Systems Const Denies body aches, Denies chills, Denies excessive sweating, Denies fatigue, Denies fever(s) and Denies headache(s) Eyes Denies blurry vision ENT Denies dysphagia, Denies vertigo, Denies dizziness, Denies headache(s), Denies hearing loss and Denies tinnitus Card Denies chest pain, Denies chest pain with activity, Denies syncope, Denies irregular heart rhythm and Denies dyspnea Resp Denies chest congestion, Denies cough, Denies hemoptysis, Denies dyspnea and Denies wheezing GI Denies abdominal pain, Denies melena, Denies hematochezia, Denies coffee ground emesis, Denies dysphagia, Denies diarrhea, Denies nausea and Denies vomiting Denies difficulty urinating, Denies dysuria, Denies urinary frequency, Denies urinary hesitancy and Denies urinary urgency Musc Denies arthralgias, Denies limited range of motion, Denies muscle cramps and Denies muscle weakness Skin/Breast Denies rash and Denies skin ulcer Neuro Denies Abnormal speech present, Denies confusion, Denies vertigo, Denies dizziness, Denies syncope, Denies headache(s), Denies memory loss and Denies seizure-like activity Psych Denies anxiety, Denies confusion, Denies depression, Denies memory loss, Denies panic attacks and Denies paranoia Endo Denies excessive sweating, Denies fatigue, Denies flushing, Denies polydipsia and Denies polyuria Aller/Immun Denies wheezing Physical exam (Primary Care) Vital Signs: Last Vital Signs Pulse 95 11/29/23 08:41 BP 116/64 11/29/23 08:41 Pulse Ox 99 11/29/23 08:41 Oxygen Delivery Method Room Air 11/29/23 08:41 BMI result Body Mass Index 25.7 Tobacco/Smoking Status: Tobacco use Status Tobacco use date assessed 11/29/23 11/29/23 08:43 Patient Tobacco Use Status Former Tobacco user 11/29/23 08:43 Tobacco use type Cigarette 11/29/23 08:43 e-Cigarette/Vaping Use Never Used 11/29/23 08:43 Depression Screening Interpretation: Positive Depression Screening Follow-up: Existing condition and Community Mental Health Worker F/U Thrive Assessment: Date of Thrive Assessment Date Thrive assessed 11/29/23 11/29/23 08:43 Const General: cooperative, comfortable, no acute distress, alert and awake; No confusion Orientation/consciousness: oriented to person, oriented to place, patient oriented x3 and No confusion HENMT Head: Yes normocephalic Ears: external ears normal and TM's normal bilaterally Face and sinus: No sinus tenderness Mouth: Normal oral and palatal mucosa present and tongue normal Teeth and gingiva: dentition normal and gingiva normal Throat: Yes posterior oropharynx normal, Yes tonsils normal and Yes uvula midline Eyes Conjunctivae: conjunctivae normal Sclerae: sclerae normal Pupils: Equal, round and reactive pupils present EOM: EOMs intact bilaterally Direct Ophthalmoscopy: No no photophobia Neck Neck: Yes no lymphadenopathy, No tender and Yes no JVD Thyroid: Thyroid normal Carotids: no bruits Chest Chest palpation & inspection: no tenderness Resp Effort & Inspection: normal respiratory effort, no audible wheezes, not labored and no stridor Auscultation: no crackles, no rales, no rhonchi and no wheezes Cardio Jugular venous distension: no JVD Rate: regular rate, not bradycardic and not tachycardic Rhythm: regular rhythm Bruits: no carotid bruits Peripheral pulses: Peripheral pulses 2+ throughout GI Inspection: Yes normal to inspection, No abdominal wall ecchymosis and No visible herniation Palpation (GI): Soft to palpation, nontender, no guarding, not rigid and No hepatosplenomegaly present Auscultation: normoactive bowel sounds General: Yes no CVA tenderness Back/Spine/Pelvis Back: no CVA tenderness and No back tenderness Cervical Spine: cervical ROM normal Thoracic/Lumbar Spine: thoracic and lumbar spine normal to inspection, straight leg raise negative bilaterally, No thoraco-lumbar ROM limited and No lumbar spinal tenderness Skin Lesions: no lesions Rashes: no rashes Wounds: no wounds Neuro General: oriented to person, oriented to place, patient oriented x3, CN's II-XI intact bilaterally and No confusion Cranial nerves: Yes Equal, round and reactive pupils present and Yes Normal accommodation reflex present Cognition (Neuro): normal cognition Speech: No Abnormal speech present Gait exam (Neuro): Normal gait present Motor exam (neuro): 5/5 motor strength present throughout Extrem Right upper extremity: full ROM; no cyanosis Left upper extremity: full ROM; no cyanosis Right lower extremity: no edema Left lower extremity: no edema Psych Appearance: grossly normal Mental Status: mental status grossly normal Affect: normal affect Attitude: cooperative Thought process: Normal thought process present Assessment and Plan Assessment & Plan (1) Annual physical exam: Code(s): Z00.00 - Encounter for general adult medical examination without abnormal findings (2) Parkinson disease: Code(s): G20 - Parkinson's disease Qualifiers: Dyskinesia presence: without dyskinesia Fluctuating manifestations: unspecified whether manifestations fluctuate Qualified Code(s): G20.A1 - Parkinson's disease without dyskinesia, without mention of fluctuations Plan: Patient continues to follow Neurology and continues on medication for his Parkinson's which has been well controlled. He denies any gait instability or recent falls. Does report his hand tremors caused him some trouble at times. He is interested in physical and occupational therapy. (3) HTN (hypertension): Code(s): I10 - Essential (primary) hypertension Qualifiers: Hypertension type: primary hypertension Qualified Code(s): I10 - Essential (primary) hypertension Plan: Patient's blood pressure acceptable today in office. Will continue his current dose of amlodipine 5 mg with goal blood pressure remain below 140/90 (4) Osteoarthritis: Code(s): M19.90 - Unspecified osteoarthritis, unspecified site Qualifiers: Laterality: right Osteoarthritis location: knee Osteoarthritis type: primary Qualified Code(s): M17.11 - Unilateral primary osteoarthritis, right knee Plan: Was seen by orthopedic surgeon. Not candidate for placement at this time. Needs physical therapy. Will supply patient with NSAID to use on a p.r.n. basis for his pain. (5) MDD (major depressive disorder), recurrent episode, moderate: Code(s): F33.1 - Major depressive disorder, recurrent, moderate Plan: Patient's PHQ-9 score positive for depression. last year and has been somewhat depressed. Family somewhat concerned. Has been started on sertraline 50 mg. He will be interested in cognitive behavioral therapy. Orders: Orders OT Evaluation and Treatment Today G20.A1 - Parkinson's disease without dyskinesia, without mention of fluctuations Complete Blood Count no Diff Today I10 - Essential (primary) hypertension PT Evaluation and Treatment Today G20.A1 - Parkinson's disease without dyskinesia, without mention of fluctuations Comprehensive [place]. Panel Fast Today I10 - Essential (primary) hypertension Referrals Counseling Referral F33.1 - Major depressive disorder, recurrent, moderate, Z13.220 - Encounter for screening for lipoid disorders Medications: New meloxicam 15 mg PO DAILY 30 tabs 1RF 30 days M19.90 - Unspecified osteoarthritis, unspecified site Coding Level of Care Code Est Pt Prev Care >65y(77006) Diagnoses Annual physical exam Z00.00 Parkinson's disease without dyskinesia, unspecified whether manifestations fluctuate G20.A1 Dyskinesia presence: without dyskinesia Fluctuating manifestations: unspecified whether manifestations fluctuate Primary hypertension I10 Hypertension type: primary hypertension Primary osteoarthritis of right knee M17.11 Laterality: right Osteoarthritis location: knee Osteoarthritis type: primary MDD (major depressive disorder), recurrent episode, moderate F33.1 Additional Codes TOMER-7 Assessment Billing - TOMER-7 Assessment Tool: TOMER-7 Assessment 88676 ([id number])
== END 2023-11-29 09:14 | disposition home or self-care (01) ==
PROVIDERS: PCP Physician Assistant; Visit Provider Physician Assistant
DX: Z00.00 Encounter for general adult medical examination without abnormal findings (principal); G20.A1 Parkinson's disease without dyskinesia, without mention of fluctuations; F33.1 Major depressive disorder, recurrent, moderate; I10 Essential (primary) hypertension; M17.11 Unilateral primary osteoarthritis, right knee
CPT/HCPCS: 99397

== ENCOUNTER 2023-12-09 12:02 | Outpatient (RCR) | payer MEDICARE, SELFPAY ==
--- NOTE | 2023-12-09 13:42 | MHC.OT.OEV ---
[address] [phone] F: [phone] Occupational Therapy Evaluation Patient Name: Abundio Jones Jr Diagnosis: Parkinson's Date of Onset: Date of Surgery: Attending Provider: Fabio Nieto Prescribed Treatment: Follow Up Appointment: History of Current Condition: Patient is a 63 year old male with prior MHx of Parkinson's, tremors are currently controlled by medication and was referred to skilled OT by MOY Clarke. He denies numbness/ tingling, reports no pain or difficulty with self care tasks. Significant Medical History: Precautions/Contraindications: Patient Goals: Hand Dominance: Left Observations: QuickDASH Score: Prior Level of Function and Occupation Self Care, Employment, Leisure: Retired (I)ADLs/IADLs Enjoys playing pool Living Situation, Family and/or Social Support: Lives with daughter Lives in a 1 level home with finished basement. Current Level of Function and Occupation Self Care, Employment, Leisure: (I)ADLs/IADLS Sleep: Taking medicine for sleeping Driving: not driving Vision: Balance: Pain Assessment Pain Score: 0 Pain Scale Used: Numeric (0 - 10) Pain Location and Description: 0/10 pain (B)UE Aggravating Factors: NA Alleviating Factors: NA Skin and Soft Tissue Assessment Skin and Soft Tissue: Comments: WFL Nerve assessment Ulnar Nerve: Median Nerve: Radial Nerve: Comments: Sensory Assessment Temperature: Light Touch: Proprioception: Vibration: Comments: Edema Assessment Upper Extremity: WNL Lower Extremity: Comments: Dexterity Assessment Dexterity: Comments: Functional Dexterity Test= WFL Special Tests Comments: AROM(PROM) Strength Cervical Cervical Flexion: Cervical Extension: Cervical Lateral Flexion: Cervical Rotation: Comments: Shoulder Flexion: Extension: Abduction: Internal Rotation: External Rotation: Comments: WFL Flexion: Extension: Abduction: Internal Rotation: External Rotation: Comments: WFL Elbow Flexion: Extension: Pronation: Supination: Comments: WFL Flexion: Extension: Pronation: Supination: Comments: WFL Wrist Flexion: Extension: Ulnar Deviation: Radial Deviation: Comments: WFL Flexion: Extension: Ulnar Deviation: Radial Deviation: Comments: WFL Thumb Thumb CMC Flexion: Thumb MCP Flexion: Thumb IP Flexion: Radial Abduction: [place] Abduction: [place] ([place] 0-10): Comments: WFL Digits Index MCP: PIP: DIP: Long MCP: PIP: DIP: Ring MCP: PIP: DIP: Small MCP: PIP: DIP: Comments: WFL Gross Grasp: (R)95lbs., (L)95lbs. Lateral Pinch: (R)17 (L)21 Two-Point Pinch: (R)7 (L)10 Three-Jaw Dharmesh: (R)18 (L)17 Comments: WFL Patient Education Primary Language: Neurology Director Required: No Current Knowledge: Teaching Method: Education Needs Identified on Evaluation: How did patient/family demonstrate learning? Barriers to Learning: Readiness for Learning: Who was educated? Comments: Plan of Care Assessment: Patient's current level of function is (I) with ADLs/ IADLs which is his baseline. 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 At this time as patient presents with no deficits while performing self care tasks skilled OT intervention is not recommended. Should patient have difficulty in the future patient will be re-evaluated by OT. Thank you for referral. STG Duration: NA Short Term Goals: eval only LTG Duration: NA Alf Goals: eval only Frequency and Duration: The patient will be seen 1x only Treatment Plan: Other (see comments) Eval only Electronically Signed By: Sharon Matos OTR/L, CLT Reviewed/agree with student documentation: Therapist: Please sign and return to therapist, Thank you for your referral.
== END 2023-12-09 14:54 | disposition home or self-care (01) ==
LOC: HO.OT 12:02
PROVIDERS: PCP Physician Assistant; Visit Provider Physician Assistant
DX: G20.A1 Parkinson's disease without dyskinesia, without mention of fluctuations (principal)
CPT/HCPCS: 97165

== ENCOUNTER 2024-07-12 13:44 | Outpatient (AMB) | payer MEDICARE, SELFPAY ==
--- NOTE | 2024-07-12 13:47 | MHC.PC.OV ---
Vital Signs 07/12/24 13:48 Height 5 ft 7 in Weight 157 lb BMI 24.6 BP 126/80 Blood Pressure Location Lt brachial Position Sitting Pulse 80 Pulse Source Pulse Oximeter Pulse Oximetry (%) 99 Oxygen Delivery Method Room Air Intake Visit Reasons: f/u HTN Allergies codeine Allergy (Mild, Verified 07/12/24 13:55) nausea Medication List - Last Reconciled 07/12/24 by Fabio Nieto PA-C amlodipine 5 mg PO DAILY 90 days blood pressure test kit-medium As directed carbidopa-levodopa 25-100 mg 2 tabs PO TID gabapentin 300 mg PO DAILY meloxicam 15 mg PO DAILY 30 days sertraline 50 mg PO DAILY triamcinolone acetonide 0.1% 1 appl topical DAILY 15 days Tobacco use date assessed: 11/29/23 Dental Screening Dental Screen Date: 11/29/23 HPI f/u HTN HPI Details Patient is a 64-year-old male here today for a follow-up visit. ? Patient has a past medical history significant for parkinsonian syndrome, hepatitis-C . Concern--> has been more depressed as of late due to the passing of his . Has lost a few lb since last office visit. He is still not interested in cognitive behavioral therapy. He has not been taking sertraline and is willing to restart .. Osteoarthritis of the knees: Also been having issues with pain with his right knee. He follow-up with orthopedics whom recommends physical therapy. Not a candidate for knee replacement at this time. . Hypertension: Blood pressure acceptable today in office. Continues on amlodipine 5 mg with good affect. He denies any chest discomfort, chest pain or dizziness. Parkinson's disease: Patient followed by a neurologist (Dr. christianson) and has been on carbidopa levodopa with improvement of his tremor. Recent dose of carbidopa levodopa was increased. [facility] Medical History Parkinson disease Hepatitis B Surgical History History of cardiac catheterization History of knee surgery Family History Mother Vaginal cancer Father Diabetes Family/Other Mental health disorder Social History Housing: Apartment Alcohol intake: former Patient Tobacco Use Status: Former Tobacco user Tobacco use type: Cigarette e-Cigarette/Vaping Use: Never Used Second Hand Smoke Exposure: No service: No Current occupational status: retired Cognitive needs: No Hearing needs: No Vision needs: Yes Questionnaire Thrive Questionnaire Date Thrive assessed: 11/29/23 Are you currently unemployed and looking for a job?: No TOMER-7 AMB Questionnaire TOMER-7 Date TOMER - 7 assessed: 11/29/23 Source: Developed by Drs. Luis Verma, Rica Borden, Logan Montes and colleagues, with an educational emili from [employer]. Review of Systems Const Denies headache(s) Eyes Denies loss of vision ENT Denies vertigo, Denies dizziness, Denies headache(s) and Denies sore throat Card Denies chest pain, Denies leg edema and Denies lightheadedness Resp Denies cough, Denies hemoptysis and Denies wheezing GI Denies abdominal pain, Denies melena, Denies constipation, Denies diarrhea and Denies vomiting Denies dysuria, Denies urinary frequency and Denies urinary urgency Musc Denies arthralgias, Denies joint swelling, Denies numbness and Denies tingling Neuro Denies Abnormal speech present, Denies behavioral changes, Denies vertigo, Denies dizziness, Denies headache(s), Denies loss of vision, Denies memory loss, Denies numbness and Denies tingling Psych Denies anxiety, Denies behavioral changes, Denies depression, Denies memory loss and Denies panic attacks Matthieu/Lymph Denies easy bleeding and Denies easy bruising Aller/Immun Denies wheezing Physical exam (Primary Care) Vital Signs: Last Vital Signs Pulse 80 07/12/24 13:48 BP 126/80 07/12/24 13:48 Pulse Ox 99 07/12/24 13:48 Oxygen Delivery Method Room Air 07/12/24 13:48 BMI result Body Mass Index 24.6 Tobacco/Smoking Status: Tobacco use Status Tobacco use date assessed 11/29/23 07/12/24 13:48 Patient Tobacco Use Status Former Tobacco user 07/12/24 13:48 Tobacco use type Cigarette 07/12/24 13:48 e-Cigarette/Vaping Use Never Used 07/12/24 13:48 Thrive Assessment: Date of Thrive Assessment Date Thrive assessed 11/29/23 07/12/24 13:48 Const General: healthy appearing, no acute distress, alert and awake Nutritional Appearance: well nourished Orientation/consciousness: oriented to person, oriented to place and oriented to time HENMT Ears: TM's normal bilaterally General nose exam: Normal nasal mucous membranes and turbinates present Eyes Conjunctivae: conjunctivae normal Sclerae: sclerae normal Pupils: Equal, round and reactive pupils present Neck Neck: Yes no lymphadenopathy and Yes no JVD Thyroid: Thyroid normal Carotids: no bruits Resp Effort & Inspection: normal respiratory effort and not tachypneic Auscultation: no crackles, no rales, no rhonchi and no wheezes Cardio Rate: regular rate Rhythm: regular rhythm Heart sounds: no murmurs and normal S1 and S2 GI Palpation (GI): Soft to palpation, nontender, no hepatomegaly and no splenomegaly Auscultation: normal bowel sounds Skin General skin exam: no rashes or lesions noted and dry skin Neuro General: oriented to person, oriented to place and oriented to time Cranial nerves: Yes Equal, round and reactive pupils present Speech: No Abnormal speech present Gait exam (Neuro): Normal gait present Motor exam (neuro): no tremor noted Extrem Right upper extremity: full ROM Left upper extremity: full ROM Right lower extremity: full ROM; no edema Left lower extremity: full ROM; no edema Psych Mental Status: mental status grossly normal Speech and movement: Normal speech and movement present Affect: normal affect Attitude: cooperative Thought process: Normal thought process present Office Procedures Flu Questionnaire Does the patient have a severe egg allergy?: No Does the patient have severe life threatening allergies?: No Does the patient have a fever or illness today?: No Has the patient ever had Guillain-[place] Syndrome?: No Has the patient ever had any past reaction to a flu shot?: No Immunizations Fluarix Triv 3510-8099 (PF) 45 mcg (15 mcg x 3)/0.5 mL IM syringe Performing Provider: Fabio Nieto PA-C Performing Location: [facility] [place] [facility] Administered by: LILA Shukla on 07/12/24 13:59 Dose Route Admin Location Dispensed Lot Number Expiration Date NDC Director Biology 0.5 mL IM Left Deltoid 0.5 mL [id number] 04/08/25 53771-606-08 [employer] VIS Given Date VIS Provided VIS Publication Date 07/12/24 Single Vaccine 21 Eligibility Eligibility Date Funding Source Not VF Eligible 07/12/24 Private Coding Level of Care Code Est Pt Level 4 (35094) Diagnoses Primary hypertension I10 Hypertension type: primary hypertension MDD (major depressive disorder), recurrent episode, moderate F33.1 Parkinson's disease without dyskinesia, unspecified whether manifestations fluctuate G20.A1 Dyskinesia presence: without dyskinesia Fluctuating manifestations: unspecified whether manifestations fluctuate Assessment & Plan Assessment & Plan (1) HTN (hypertension): Code(s): I10 - Essential (primary) hypertension Category: Medical Qualifiers: Hypertension type: primary hypertension Qualified Code(s): I10 - Essential (primary) hypertension Plan: Patient's blood pressure acceptable today in office. Will continue his current dose of amlodipine with goal blood pressure to remain below 140/90 (2) MDD (major depressive disorder), recurrent episode, moderate: Code(s): F33.1 - Major depressive disorder, recurrent, moderate Category: Medical Plan: Patient reports he still has some depression due to the passing of his . Likely suffering with grief. Not interested in a mental health therapist. He is willing to perhaps restart sertraline (3) Parkinson disease: Code(s): G20 - Parkinson's disease Category: Medical Qualifiers: Dyskinesia presence: without dyskinesia Fluctuating manifestations: unspecified whether manifestations fluctuate Qualified Code(s): G20.A1 - Parkinson's disease without dyskinesia, without mention of fluctuations Plan: Continues to follow Neurology. Can take carbidopa levodopa 3 times a day with good effect. Orders: Orders Influenza [id number] Immunization Today Z23 - Encounter for immunization Patient Instructions: Goal: Blood pressure to remain below 140/90 Barriers: Adherence to physical activity and healthy eating habits
[2024-07-12 13:48] VITALS: BP 126/80; PULSE 80; O2SAT 99; BMI 24.6
== END 2024-07-12 14:09 | disposition home or self-care (01) ==
PROVIDERS: PCP Physician Assistant; Visit Provider Physician Assistant
DX: I10 Essential (primary) hypertension (principal); F33.1 Major depressive disorder, recurrent, moderate; G20.A1 Parkinson's disease without dyskinesia, without mention of fluctuations; Z23 Encounter for immunization

== ENCOUNTER → 2024-07-12 13:44 | Outpatient (BNVA) | payer MEDICARE, SELFPAY | PROVIDERS: PCP Physician Assistant; Visit Provider Physician Assistant | DX: Z23 Encounter for immunization (principal); I10 Essential (primary) hypertension; F33.1 Major depressive disorder, recurrent, moderate; G20.C Parkinsonism, unspecified | CPT/HCPCS: 90471; 90656; 99212 ==

== ENCOUNTER 2024-08-02 07:57 | Outpatient (REF) | payer MEDICARE, SELFPAY ==
[2024-08-02 08:52] LABS: Hemoglobin 15.6 g/dl (14.0-18.0); Mean Corpuscular HGB Conc 34.7 g/dl (31.0-36.0); Mean Corpuscular Hemoglobin 32.1 pg (27.0-33.0); Mean Corpuscular Volume 92.6 fL (80.0-98.0); Mean Platelet Volume 10.5 fL (9.4-12.4); Platelet Count 247 X10*3/uL (160-400); Red Blood Count 4.86 X10*6/uL (4.60-5.80); Red Cell Distribution Width 13.8 % (11.0-16.0); White Blood Count 4.8 X10*3/uL (4.8-10.8)
[2024-08-02 09:25] LABS: Alanine Aminotransferase < 6 U/L (0-40); Albumin Level 4.4 g/dL (3.5-5.0); Alkaline Phosphatase 60 U/L (39-117); Anion Gap 10 (12-20); Aspartate Amino Transferase 20 U/L (5-37); Bilirubin Total 0.7 mg/dL (0.0-1.0); Blood Urea Nitrogen 12 mg/dL (9-16); Calcium 9.2 mg/dL (8.4-10.2); Carbon Dioxide 29 mmol/L (22-29); Chloride 106 mmol/L (96-108); Estimated Glomerular Filt Rate > 60; Glucose Fasting 103 mg/dL (60-99); Sodium 141 mmol/L (135-145); Total Protein 7.3 g/dL (6.5-8.0)
== END 2024-08-02 07:58 | disposition home or self-care (01) ==
LOC: HO.LAB 07:57
PROVIDERS: PCP Physician Assistant; Visit Provider Physician Assistant
DX: I10 Essential (primary) hypertension (principal)
CPT/HCPCS: 36415; 80053; 85027

== ENCOUNTER 2025-01-10 13:23 | Outpatient (AMB) | payer MEDICARE, SELFPAY ==
--- NOTE | 2025-01-10 13:26 | A.OFFPC_ITS ---
Vital Signs 01/10/25 13:31 Height 5 ft 7 in Weight 166 lb 4 oz BMI 26.0 BP 132/82 Blood Pressure Location Lt brachial Position Sitting Pulse 96 Pulse Source Pulse Oximeter Temp 97.3 F Temp Source Temporal Artery Scan Pulse Oximetry (%) 98 Oxygen Delivery Method Room Air Intake Visit Reasons: Annual Exam Mooner Required: No Accompanied by: granddaughter Allergies codeine Allergy (Mild, Verified 01/10/25 13:44) nausea Medication List - Last Reconciled 01/10/25 by Fabio Nieto PA-C amlodipine 5 mg PO DAILY 90 days blood pressure test kit-medium As directed carbidopa-levodopa 25-100 mg 2 tabs PO TID Tobacco use date assessed: 01/10/25 Fall risk assessment: No Falls in past year Last assessed Fall Risk: 01/10/25 Dental Screening Dental Screen Date: 01/10/25 Did you have a dental visit in the last 12 months?: Yes Did you have a dental problem in the last 6 months where you did not have access to dental care?: No Was dental information given to patient?: Patient has dentist HPI Annual Exam HPI Details Patient is a 64-year-old male here today for routine annual physical. ? Patient has a past medical history significant for parkinsonian syndrome, hepatitis-C . Concern--> patient reports his right shoulder has been a bit more painful and having some decreased range of motion. Had history of tendinopathy of the right shoulder and did get a cortisone injection years ago which did help reduce his pain. He would like referral back to orthopedic for cortisone injection patient is due for cataract removal surgery next month. Needs preop clearance from PCP. .. . Hypertension: Blood pressure acceptable today in office. Continues on amlodipine 5 mg with good affect. He denies any chest discomfort, chest pain or dizziness. Parkinson's disease: Patient followed by a neurologist (Dr. christianson) and has been on carbidopa levodopa with improvement of his tremor. Recent dose of carbidopa levodopa was increased. He does report having a side effect from carbidopa levodopa and will speak with his neurologist about this. Colonoscopy: Colonoscopy done in 2021 -normal. Repeat colonoscopy in 10 years Vaccines: Up-to-date with COVID vaccine, flu vaccine considering pneumonia and tetanus vaccines [facility] Medical History Parkinson disease Hepatitis B Surgical History History of cardiac catheterization History of knee surgery Family History Mother Vaginal cancer Father Diabetes Family/Other Mental health disorder Social History (Updated 01/10/25 @ 13:49 by Fabio Nieto PA-C) Housing: Apartment Alcohol intake: current Alcohol intake frequency: holidays/special occasions only Patient Tobacco Use Status: Former Tobacco user Tobacco use type: Cigarette e-Cigarette/Vaping Use: Never Used Second Hand Smoke Exposure: No service: No Current occupational status: retired Cognitive needs: No Hearing needs: No Vision needs: Yes Questionnaire PHQ-9 Over the last 2 weeks, how often have you been bothered by any of the following problems? 1. Little interest or pleasure in doing things: several days 2. Feeling down, depressed, or hopeless: several days 3. Trouble falling or staying asleep, or sleeping too much: several days 4. Feeling tired or having little energy: several days 5. Poor appetite or overeating: several days 6. Feeling bad about yourself - or that you are a failure or have let yourself or your family down: several days 7. Trouble concentrating on things, such as reading the newspaper or watching television: several days 8. Moving or speaking so slowly that other people could have noticed. Or the opposite - being so fidgety or restless that you have been moving around a lot more than usual: several days 9. Thoughts that you would be better off or of hurting yourself in some way: not at all Total score: 8 Depression Screening Interpretation: Positive Depression Screening Follow-up: E xisting condition Depression Screening Done: Yes 09358 - PHQ-9 Billing: Yes Source: Developed by Drs. Luis Verma, Rica Borden, Logan Montes and colleagues, with an educational emili from [employer]. Thrive Questionnaire Date Thrive assessed: 01/10/25 I am a: Patient What is your living situation today?: I have a steady place to live Within the past 12 months, did the food you bought not last and you didn't have the money to get more?: Never true Within the past 12 months, did you worry whether your food would run out before you got money to buy more?: Never true Do you have trouble paying for medicines?: No Do you have trouble getting transportation to medical appointments?: No Do you have trouble paying your heating and electricity bill?: No Do you have trouble taking care of your child, family member or friend?: No Do you have trouble with day-to-day activities such as bathing, preparing meals, shopping, managing finances, etc.?: No Are you currently unemployed and looking for a job?: No Are you interested in more education?: No Please select the resources that you would like help with: None Currently or been in a relationship where the following occur: No concerns reported THRIVE Score: 0 AUDIT C Alcohol Use Questionnaire (AUDIT-C) 1. How often do you have a drink containing alcohol?: 2-4 times a month 2. How many drinks containing alcohol do you have on a typical day when you are drinking?: 1 or 2 3. How often do you have six or more drinks on one occasion?: Less than monthly Total Score: 3 TOMER-7 AMB Questionnaire TOMER-7 Date TOMER - 7 assessed: 01/10/25 Feeling nervous, anxious, or on edge: 1 = Several days Not being able to stop or control worryin = Several days Worrying too much about different things: 1 = Several days Trouble relaxin = Several days Being so restless that it is hard to sit still: 1 = Several days Becoming easily annoyed or irritable: 1 = Several days Feeling afraid as if something awful might happen: 0 = Not at all Total TOMER-7 score (0-4 normal; 5-9 mild; 10-14 moderate; 15-21 severe): 6 Source: Developed by Drs. Luis Verma, Rica Borden, Logan Montes and colleagues, with an educational emili from [employer]. TOMER-7 Assessment Billing TOMER-7 Assessment Tool: TOMER-7 Assessment 03771 Physical exam (Primary Care) Vital Signs: Last Vital Signs Temp 97.3 F 01/10/25 13:31 Pulse 96 01/10/25 13:31 BP 132/82 01/10/25 13:31 Pulse Ox 98 01/10/25 13:31 Oxygen Delivery Method Room Air 01/10/25 13:31 BMI result Body Mass Index 26.0 Tobacco/Smoking Status: Tobacco use Status Tobacco use date assessed 01/10/25 01/10/25 13:40 Patient Tobacco Use Status Former Tobacco user 01/10/25 13:49 Tobacco use type Cigarette 01/10/25 13:49 e-Cigarette/Vaping Use Never Used 01/10/25 13:49 PHQ-9: PHQ-9 Score PHQ-9: Total score 8 01/10/25 13:53 Depression Screening Interpretation: Positive Depression Screening Follow-up: Existing condition Thrive Assessment: Date of Thrive Assessment Date Thrive assessed 01/10/25 01/10/25 13:28 Currently or been in a relationship where the following occur: No concerns reported Immunizations pneumoc 20-mando conj-dip cr(PF) 0.5 mL IM syringe Performing Provider: Fabio Nieto PA-C [facility] [place] [facility] Administered by: LILA Shukla on 01/10/25 14:06 Dose Route Admin Location Dispensed Lot Number Expiration Date [facility] Construction Technology Instructor 0.5 mL IM Left Deltoid 0.5 mL [id number] 11/10/25 2345-7733-35 [employer] VIS Given Date VIS Provided VIS Publication Date 01/10/25 Single Vaccine 21 Eligibility Eligibility Date Funding Source Not [facility] Eligible 01/10/25 Private Coding Level of Care Code Est Pt Prev Care >65y(29154) Diagnoses Annual physical exam Z00.00 MDD (major depressive disorder), recurrent episode, moderate F33.1 Pre-op evaluation Z01.818 Primary hypertension I10 Hypertension type: primary hypertension Age-related cataract of both eyes, unspecified age-related cataract type H25.9 Age-related cataract type: unspecified Cataract type: age-related Laterality: bilateral Additional Codes TOMER-7 Assessment Billing - TOMER-7 Assessment Tool: TOMER-7 Assessment 05680 ([id number]) PHQ-9 - 11544 - PHQ-9 Billing: Yes ([id number]) Assessment & Plan Assessment & Plan (1) Annual physical exam: Code(s): Z00.00 - Encounter for general adult medical examination without abnormal findings Category: Medical Plan: As per HPI (2) MDD (major depressive disorder), recurrent episode, moderate: Code(s): F33.1 - Major depressive disorder, recurrent, moderate Category: Medical Plan: Patient does seem to be suffering with depression. Was on sertraline in the past though has stopped taking the medication. Patient's did pass away last year and does seem to be suffering with grief.. Daughter today in office requesting patient to be restarted. He has stopped going to talk therapy as well. (3) Pre-op evaluation: Code(s): Z01.818 - Encounter for other preprocedural examination Category: Medical Plan: Patient's most recent labs and vitals today in office acceptable. Patient is medically clear for needed cataract removal surgery (4) HTN (hypertension): Code(s): I10 - Essential (primary) hypertension Category: Medical Qualifiers: Hypertension type: primary hypertension Qualified Code(s): I10 - Essential (primary) hypertension Plan: Patient's blood pressure acceptable today in office. Will continue current dose of amlodipine with goal blood pressure to be below 140/90 (5) Cataract: Code(s): H26.9 - Unspecified cataract Category: Medical Qualifiers: Age-related cataract type: unspecified Cataract type: age-related Laterality: bilateral Qualified Code(s): H25.9 - Unspecified age-related cataract Plan: Patient due for cataract removal next month. Orders: Orders Prostate Specific Antigen Scr Today I10 - Essential (primary) hypertension, Z12.5 - Encounter for screening for malignant neoplasm of prostate Complete Blood Count no Diff Today I10 - Essential (primary) hypertension Comprehensive [place]. Panel Fast Today I10 - Essential (primary) hypertension Microalbumin, Random (w Creat) Today I10 - Essential (primary) hypertension Pneumococcal 20 Immunization Today Z23 - Encounter for immunization Referrals Orthopedics Referral M25.812 - Other specified joint disorders, left shoulder Medications: New sertraline 50 mg PO DAILY 90 tabs 1RF F33.1 - Major depressive disorder, recurrent, moderate pneumoc 20-mando conj-dip cr(PF) 0.5 mL IM ONCE 0.5 mL 0RF Z23 - Encounter for immunization Refilled amlodipine 5 mg PO DAILY 90 tabs 1RF 90 days I10 - Essential (primary) hypertension
[2025-01-10 13:31] VITALS: BP 132/82; PULSE 96; TEMP 36.3; O2SAT 98; BMI 26.0
== END 2025-01-10 14:08 | disposition home or self-care (01) ==
LOC: HO.HMCH 13:24
PROVIDERS: PCP Physician Assistant; Visit Provider Physician Assistant
DX: Z23 Encounter for immunization (principal)

== ENCOUNTER → 2025-01-10 13:23 | Outpatient (BNVA) | payer MEDICARE, SELFPAY | PROVIDERS: PCP Physician Assistant; Visit Provider Physician Assistant | DX: Z00.00 Encounter for general adult medical examination without abnormal findings (principal); I10 Essential (primary) hypertension; G20.A1 Parkinson's disease without dyskinesia, without mention of fluctuations; F33.9 Major depressive disorder, recurrent, unspecified; F33.1 Major depressive disorder, recurrent, moderate; H25.9 Unspecified age-related cataract; Z23 Encounter for immunization; Z79.899 Other long term (current) drug therapy | CPT/HCPCS: 90471; 90677; 96127; 99397 ==

== ENCOUNTER 2025-03-22 11:36 | Outpatient (AMB) | payer MEDICARE, MEDICAID, SELFPAY ==
[2025-03-22 11:43] VITALS: BMI 26.0
--- NOTE | 2025-03-22 11:43 | MHC.OFFVIS ---
Vital Signs 03/22/25 11:43 Height 5 ft 7 in Weight 166 lb BMI 26.0 Intake Visit Reasons: New Problem - Right Shoulder Pain Intake Note: Abundio is a 65 year old right hand dominant male who presents today for a new problem visit with complaints of Right Shoulder Pain. Patient reports tht the last injectionn done in 2021 was very helpful and he would like to repeat injection today. Allergies codeine Allergy (Mild, Verified 03/22/25 11:44) nausea HPI HPI New Problem - Right Shoulder Pain: Details: Abundio is a 65 year old right hand dominant male who presents today for a new problem visit with complaints of Right Shoulder Pain. Patient reports the the last injection done in 2021 was very helpful and he would like to repeat injection today. He describes pain with overhead activity and pain at night. He is suffering from some parkinsonism and has a tremor. He feels that this might be responsible for his right shoulder pain. He denies injury. [facility] Medical History (Updated 03/25/25 @ 08:05 by Tank Sipcer MD) Parkinson disease Hepatitis B Surgical History History of cardiac catheterization History of knee surgery Family History Mother Vaginal cancer Father Diabetes Family/Other Mental health disorder Social History (Updated 01/10/25 @ 13:49 by Fabio Nieto PA-C) Housing: Apartment Alcohol intake: current Alcohol intake frequency: holidays/special occasions only Patient Tobacco Use Status: Former Tobacco user Tobacco use type: Cigarette e-Cigarette/Vaping Use: Never Used Second Hand Smoke Exposure: No service: No Current occupational status: retired Cognitive needs: No Hearing needs: No Vision needs: Yes Physical Exam Vital Signs: BMI result Body Mass Index 26.0 Extrem Other: Apprehensive but 130 degrees forward flexion 90 degrees of abduction external rotation to 35 and internal rotation hip pocket. Positive Gama and Neer. Negative empty can. Office Procedures Joint Inj/Aspir; Non-Pain Clin Joint Injection/Drain Prep: site was prepped using aseptic technique and injection warnings given Procedure: The patient tolerated the procedure well Shoulders, Hips, Knees, Shoulder Injection Large joint : Right Shoulder Coding Procedure code (CPT) selection complete Assessment & Plan Assessment & Plan (1) Bursitis of right shoulder: Code(s): M75.51 - Bursitis of right shoulder Category: Medical Plan: This is a 65-year-old gentleman with right shoulder pain that has benefitted from injections in the past. He is dealing with movement disorder and I think the etiology of his pain is multifactorial. Nevertheless I injected his right shoulder under sterile conditions without complication. He may follow up as needed. Plan I injected his right shoulder today Orders: Orders XR shoulder LT min 2V 03/22/25 M25.519 - Pain in unspecified shoulder XR shoulder RT min 2V 03/22/25 M25.519 - Pain in unspecified shoulder Coding Level of Care Code Est Pt Level 3 (15271) Diagnoses Bursitis of right shoulder M75.51 CPT Codes Shoulders, Hips, Knees, - Shoulder Injection Large joint : Right Shoulder ([id number])
== END 2025-03-22 12:31 | disposition home or self-care (01) ==
LOC: HO.HOS 11:37
PROVIDERS: PCP Physician Assistant; Visit Provider Orthopaedic Surgery
DX: M75.51 Bursitis of right shoulder (principal)
CPT/HCPCS: 20610; 99213

== ENCOUNTER 2025-03-22 11:53 | Outpatient (REF) | payer MEDICARE, MEDICAID, SELFPAY ==
--- NOTE | ~2025-03-22 | XR_ITS ---
EXAMINATION: XR SHOULDER, RIGHT CLINICAL INFORMATION: M25.519 - Pain in unspecified shoulder COMPARISON: None available. TECHNIQUE: Three views of the right shoulder. FINDINGS: No acute cortical disruption or malalignment. Focal calcification at the supraspinatus tendon insertion. No lytic or blastic lesions. XR/XR shoulder RT min 2V IMPRESSION: Calcific tendinosis versus tendinopathy, supraspinatus. Electronically signed by: Josiah Avery MD 03/22/2025 12:58 PM EDT
== END 2025-03-22 11:54 | disposition home or self-care (01) ==
LOC: HO.HOSX 11:53
PROVIDERS: Visit Provider Physician Assistant
DX: M25.511 Pain in right shoulder (principal); M25.512 Pain in left shoulder; M75.51 Bursitis of right shoulder
CPT/HCPCS: 20610; 73030; 99212; J0665; J1100; J2003

== ENCOUNTER → 2025-03-22 11:54 | Outpatient (BNV) | payer MEDICARE, MEDICAID, SELFPAY | PROVIDERS: Visit Provider Radiology Diagnostic Radiology | DX: M25.511 Pain in right shoulder (principal) | CPT/HCPCS: 73030 ==

== ENCOUNTER 2025-04-09 12:58 | Outpatient (AMB) | payer MEDICARE, MEDICAID, SELFPAY ==
[2025-04-09 13:02] VITALS: BP 100/60; PULSE 87; TEMP 36.3; O2SAT 97; BMI 25.7
--- NOTE | 2025-04-09 13:02 | MHC.PC.OV ---
Vital Signs 04/09/25 13:02 Height 5 ft 7 in Weight 164 lb 2 oz BMI 25.7 BP 100/60 Blood Pressure Location Lt brachial Position Sitting Pulse 87 Pulse Source Pulse Oximeter Temp 97.4 F Temp Source Temporal Artery Scan Pulse Oximetry (%) 97 Oxygen Delivery Method Room Air Intake Visit Reasons: [facility] cataract 05/04 & 05/17 Intake Note: Patient is here for a Pre-op for Cataracts scheduled with Dr. Otilio Cleemnte MD on 05/04 and 05/17/25. . Manager Service Desk Required: No Accompanied by: Daughter Allergies codeine Allergy (Mild, Verified 04/09/25 13:14) nausea Medication List - Last Reconciled 04/09/25 by Fabio Nieto PA-C amlodipine 5 mg PO DAILY 90 days blood pressure test kit-medium As directed carbidopa-levodopa 25-100 mg 2 tabs PO TID ketorolac 0.5% 1 drp ophthalmic (eye) TID sertraline 50 mg PO DAILY Tobacco use date assessed: 04/09/25 Dental Screening Dental Screen Date: 04/09/25 Did you have a dental visit in the last 12 months?: Yes Did you have a dental problem in the last 6 months where you did not have access to dental care?: No Was dental information given to patient?: Patient has dentist HPI [facility] cataract 05/04 & 05/17 HPI Details Patient is a 65-year-old male here today for preop visit. He is due for cataract removal in April and May. ? Patient has a past medical history significant for parkinsonian syndrome, hepatitis-C . Patient has no significant history CVA, HF or an DC. He is not on any anticoagulation or antiplatelet therapy at this time. . Hypertension: Blood pressure acceptable today in office. Continues on amlodipine 5 mg with good affect. He denies any chest discomfort, chest pain or dizziness. Parkinson's disease: Patient followed by a neurologist (Dr. christianson) and has been on carbidopa levodopa with improvement of his tremor. Recent dose of carbidopa levodopa was increased. He does report having a side effect (nausea) from carbidopa levodopa and will speak with his neurologist about this. Unclear if this nauseous related to his blood pressure, blood sugar or side effect of medication Laboratory Tests 11/26/23 08/02/24 04/11/25 08:15 08:06 06:57 RBC 4.84 4.89 Creatinine 0.81 Fasting Glucose 90 103 H PSA Screen 1.17 2.12 Urine Microalbumin 04/11/25 06:58 RBC Creatinine Fasting Glucose PSA Screen Urine Microalbumin 17.0 [facility] Medical History Parkinson disease Hepatitis B Surgical History History of cardiac catheterization History of knee surgery Family History Mother Vaginal cancer Father Diabetes Family/Other Mental health disorder Social History Housing: Apartment Alcohol intake: current Alcohol intake frequency: holidays/special occasions only Patient Tobacco Use Status: Former Tobacco user Tobacco use type: Cigarette e-Cigarette/Vaping Use: Never Used Second Hand Smoke Exposure: No service: No Current occupational status: retired Cognitive needs: No Hearing needs: No Vision needs: Yes Questionnaire Thrive Questionnaire Date Thrive assessed: 01/10/25 I am a: Patient What is your living situation today?: I have a steady place to live Within the past 12 months, did the food you bought not last and you didn't have the money to get more?: Never true Within the past 12 months, did you worry whether your food would run out before you got money to buy more?: Never true Do you have trouble paying for medicines?: No Do you have trouble getting transportation to medical appointments?: No Do you have trouble paying your heating and electricity bill?: No Do you have trouble taking care of your child, family member or friend?: No Do you have trouble with day-to-day activities such as bathing, preparing meals, shopping, managing finances, etc.?: No Are you currently unemployed and looking for a job?: No Are you interested in more education?: No Please select the resources that you would like help with: None Currently or been in a relationship where the following occur: No concerns reported THRIVE Score: 0 TOMER-7 AMB Questionnaire TOMER-7 Date TOMER - 7 assessed: 01/10/25 Source: Developed by Drs. Luis Verma, Rica Borden, Logan Montes and colleagues, with an educational emili from [employer]. Review of Systems Const Denies headache(s) Eyes Denies loss of vision ENT Denies vertigo, Denies dizziness, Denies headache(s) and Denies sore throat Card Denies chest pain, Denies leg edema and Denies lightheadedness Resp Denies cough, Denies hemoptysis and Denies wheezing GI Denies abdominal pain, Denies melena, Denies constipation, Denies diarrhea and Denies vomiting Denies dysuria, Denies urinary frequency and Denies urinary urgency Musc Denies arthralgias, Denies joint swelling, Denies numbness and Denies tingling Neuro Denies Abnormal speech present, Denies behavioral changes, Denies vertigo, Denies dizziness, Denies headache(s), Denies loss of vision, Denies memory loss, Denies numbness and Denies tingling Psych Denies anxiety, Denies behavioral changes, Denies depression, Denies memory loss and Denies panic attacks Matthieu/Lymph Denies easy bleeding and Denies easy bruising Aller/Immun Denies wheezing Physical exam (Primary Care) Vital Signs: Last Vital Signs Temp 97.4 F 04/09/25 13:02 Pulse 87 04/09/25 13:02 BP 100/60 04/09/25 13:02 Pulse Ox 97 04/09/25 13:02 Oxygen Delivery Method Room Air 04/09/25 13:02 BMI result Body Mass Index 25.7 Tobacco/Smoking Status: Tobacco use Status Tobacco use date assessed 04/09/25 04/09/25 13:10 Patient Tobacco Use Status Former Tobacco user 04/09/25 13:03 Tobacco use type Cigarette 04/09/25 13:03 e-Cigarette/Vaping Use Never Used 04/09/25 13:03 Thrive Assessment: Date of Thrive Assessment Date Thrive assessed 01/10/25 04/09/25 13:03 Currently or been in a relationship where the following occur: No concerns reported Const General: healthy appearing, no acute distress, alert and awake Nutritional Appearance: well nourished Orientation/consciousness: oriented to person, oriented to place and oriented to time HENMT Ears: TM's normal bilaterally General nose exam: Normal nasal mucous membranes and turbinates present Eyes Conjunctivae: conjunctivae normal Sclerae: sclerae normal Pupils: Equal, round and reactive pupils present Neck Neck: Yes no lymphadenopathy and Yes no JVD Thyroid: Thyroid normal Carotids: no bruits Resp Effort & Inspection: normal respiratory effort and not tachypneic Auscultation: no crackles, no rales, no rhonchi and no wheezes Cardio Rate: regular rate Rhythm: regular rhythm Heart sounds: no murmurs and normal S1 and S2 GI Palpation (GI): Soft to palpation, nontender, no hepatomegaly and no splenomegaly Auscultation: normal bowel sounds Skin General skin exam: no rashes or lesions noted and dry skin Neuro General: oriented to person, oriented to place and oriented to time Cranial nerves: Yes Equal, round and reactive pupils present Speech: No Abnormal speech present Gait exam (Neuro): Normal gait present Motor exam (neuro): no tremor noted Extrem Right upper extremity: full ROM Left upper extremity: full ROM Right lower extremity: full ROM; no edema Left lower extremity: full ROM; no edema Psych Mental Status: mental status grossly normal Speech and movement: Normal speech and movement present Affect: normal affect Attitude: cooperative Thought process: Normal thought process present Coding Level of Care Code Est Pt Level 3 (83774) Diagnoses Pre-op evaluation Z01.818 Age-related cataract of both eyes, unspecified age-related cataract type H25.9 Age-related cataract type: unspecified Cataract type: age-related Laterality: bilateral Assessment & Plan Assessment & Plan (1) Pre-op evaluation: Code(s): Z01.818 - Encounter for other preprocedural examination Category: Medical Plan: Patient is a low CV risk need procedure. Patient's recent labs, vitals and EKG within normal limits. Patient is medically clear for needed cataract removal (2) Cataract: Code(s): H26.9 - Unspecified cataract Category: Medical Qualifiers: Age-related cataract type: unspecified Cataract type: age-related Laterality: bilateral Qualified Code(s): H25.9 - Unspecified age-related cataract Plan: As above Orders: Orders ECG 12 lead EKG Today H25.9 - Unspecified age-related cataract Medications: New ondansetron 4 mg PO DAILY 30 tabs 2RF 30 days H25.9 - Unspecified age-related cataract
== END 2025-04-09 14:51 | disposition home or self-care (01) ==
LOC: HO.HMCH 12:59
PROVIDERS: Visit Provider Physician Assistant
DX: Z01.818 Encounter for other preprocedural examination (principal); H25.9 Unspecified age-related cataract

== ENCOUNTER → 2025-04-09 12:58 | Outpatient (BNVA) | payer MEDICARE, MEDICAID, SELFPAY | PROVIDERS: Visit Provider Physician Assistant | DX: Z01.818 Encounter for other preprocedural examination (principal); G20.C Parkinsonism, unspecified; I10 Essential (primary) hypertension; H25.9 Unspecified age-related cataract; Z86.19 Personal history of other infectious and parasitic diseases | CPT/HCPCS: 99212 ==

== ENCOUNTER 2025-04-11 06:45 | Outpatient (REF) | payer MEDICARE, SELFPAY ==
--- NOTE | 2025-04-11 07:36 | ECG_ITS ---
Test Reason : preop Blood Pressure : */* mmHG Vent. Rate : 72 BPM Atrial Rate : 72 BPM P-R Int : 156 ms QRS Dur : 110 ms QT Int : 396 ms P-R-T Axes : 70 -15 40 degrees QTcB Int : 433 ms Normal sinus rhythm Normal ECG No previous ECGs available Referred By: Fabio Nieto Electronically Signed By: PHAN TOMAS MD
[2025-04-11 07:46] LABS: Hematocrit 43.6 % (42.0-52.0); Hemoglobin 15.2 g/dl (14.0-18.0); Mean Corpuscular HGB Conc 34.9 g/dl (31.0-36.0); Mean Corpuscular Hemoglobin 31.1 pg (27.0-33.0); Mean Corpuscular Volume 89.2 fL (80.0-98.0); NRBC Abs Auto 0.020 X10*3/uL (0.0-0.012); NRBC Pct Auto 0.4 /100WBC (0.0-0.2); Platelet Count 253 X10*3/uL (160-400); Red Blood Count 4.89 X10*6/uL (4.60-5.80); White Blood Count 4.8 X10*3/uL (4.8-10.8)
[2025-04-11 08:25] LABS: Alanine Aminotransferase 28 U/L (0-40); Albumin Level 4.6 g/dL (3.5-5.0); Alkaline Phosphatase 60 U/L (39-117); Anion Gap 12 (12-20); Aspartate Amino Transferase 24 U/L (5-37); Blood Urea Nitrogen 17 mg/dL (9-16); Calcium 9.1 mg/dL (8.4-10.2); Carbon Dioxide 26 mmol/L (22-29); Chloride 106 mmol/L (96-108); Estimated Glomerular Filt Rate > 60; Potassium 3.9 mmol/L (3.3-5.1); Sodium 140 mmol/L (135-145); Total Protein 7.4 g/dL (6.5-8.0)
[2025-04-11 09:26] LABS: Microalbum/Creatinine Ratio Ur 8.6 ug/mg cr (<30)
== END 2025-04-11 06:46 | disposition home or self-care (01) ==
LOC: HO.LAB 06:45
PROVIDERS: PCP Physician Assistant; Visit Provider Physician Assistant
DX: Z12.5 Encounter for screening for malignant neoplasm of prostate (principal); I10 Essential (primary) hypertension; H25.9 Unspecified age-related cataract
CPT/HCPCS: 36415; 80053; 82043; 82570; 84153; 85027; 93005

== ENCOUNTER → 2025-04-11 07:36 | Outpatient (BNV) | payer MEDICARE, SELFPAY | PROVIDERS: PCP Physician Assistant; Visit Provider Internal Medicine Cardiovascular Disease | DX: Z13.6 Encounter for screening for cardiovascular disorders (principal); Z01.810 Encounter for preprocedural cardiovascular examination | CPT/HCPCS: 93010 ==

== ENCOUNTER 2025-04-19 08:25 | Outpatient (AMB) | payer MEDICARE, MEDICAID, SELFPAY ==
--- NOTE | 2025-04-19 08:30 | A.OFFVIS_ITS ---
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 He was here with his daughter. He was doing okay. He was taking carbidopa- levodopa 25-100mg 2 tablets three times a day for about a year and half. Medication was helping. No significant tremor. No falls. No trouble getting up from a chair or turning in bed. Mood was okay. Sleep was so-so. He woke a few times during the night, but was able to fall back to sleep. He was recently having some nausea, especially in the morning, and had labs done by PCP. [facility] Medical History Bruxism Cerebral microvascular disease H/O alcohol abuse REM sleep behavior disorder Periodic limb movement disorder (PLMD) Sleep disorder Parkinson disease Hepatitis B Surgical History History of cardiac catheterization History of knee surgery Family History (Updated 04/18/25 @ 13:04 by Rich Lock MA) Mother Vaginal cancer Father Diabetes Family/Other Mental health disorder Unknown Depression Social History Housing: Apartment Alcohol intake: current Alcohol intake frequency: holidays/special occasions only Patient Tobacco Use Status: Former Tobacco user Tobacco use type: Cigarette e-Cigarette/Vaping Use: Never Used Second Hand Smoke Exposure: No service: No Current occupational status: retired Cognitive needs: No Hearing needs: No Vision needs: Yes Review of Systems Const Denies chills, Denies daytime sleepiness, Reports difficulty sleeping, Denies fatigue, Denies fever(s), Denies frequent falls, Denies headache(s), Denies increased appetite, Denies poor appetite, Denies snoring, Denies weakness, Denies weight gain and Denies weight loss Eyes Denies loss of vision ENT Denies vertigo, Denies dizziness and Denies headache(s) Card Denies chest pain at rest, Denies chest pain with activity, Denies leg edema and Denies palpitations Resp Denies snoring GI Denies constipation, Denies heartburn, Denies diarrhea and Reports nausea Denies urinary frequency, Denies urinary incontinence and Denies urinary urgency Musc Denies abnormal gait, Denies numbness and Denies tingling Skin/Breast Denies dry skin and Denies rash Neuro Denies abnormal gait, Denies vertigo, Denies dizziness, Denies frequent falls, Denies headache(s), Denies lack of coordination, Denies loss of vision, Reports memory loss, Denies numbness, Denies restless legs, Denies seizure-like activity, Denies tingling, Denies paresthesias, Reports tremor(s) and Denies weakness Psych Denies anxiety, Reports depression, Denies auditory hallucinations, Reports memory loss, Denies visual hallucinations and Denies suicidal ideation Endo Denies fatigue and Denies palpitations Physical Exam Const Other: General Appearance:? normal, in no acute distress. Skin:? no rashes, no significant birthmarks. Heart:? S1, S2 normal, no murmurs. Lungs:? clear anteriorly and posteriorly. Extremities:? no edema. Psych:? alert, oriented, cognitive function intact, cooperative with exam. Neuro Other: Mental Status:?Normal attention, orientation, memory and affect.? Cranial Nerves:?Pupils are equal, round and reactive to light. External occular muscles are intact. Visual florence are full. Face is symmetrical. Facial sensations are normal. Tongue is midline. Palate elevates symmetrically. Shoulder shrugging is normal. Hearing to bedside conversation is normal. Motor Examination:?Normal muscle tone, bulk and strength,?Deep tendon reflexes are 2+,?Plantars are flexor.? Sensory Exam:?....? Coordination:?No ataxia,?no titubation.? Gait Exam: Arm swing okay Extrapyramidal System:?Decreased facial expressions and blinking, generalized bradykinesia, mild cogwheeling in hands. FFM are slow. Pronator Drift:?Not present.? Involuntary Movements:?Mild bilateral hand resting tremor. Speech:?Normal.? Results Reviewed Results Reviewed: Laboratory Tests 04/11/25 06:57 WBC 4.8 RBC 4.89 Hgb 15.2 Hct 43.6 MCV 89.2 MCH 31.1 MCHC 34.9 RDW 13.6 Plt Count 253 Sodium 140 Potassium 3.9 Chloride 106 Carbon Dioxide 26 Anion Gap 12 BUN 17 H Creatinine 0.81 Fasting Glucose 99 Calcium 9.1 Total Bilirubin 0.8 AST 24 ALT 28 Alkaline Phosphatase 60 Total Protein 7.4 Albumin 4.6 Assessment & Plan Assessment & Plan (1) Parkinson disease: Code(s): G20 - Parkinson's disease Category: Medical Qualifiers: Dyskinesia presence: without dyskinesia Fluctuating manifestations: unspecified whether manifestations fluctuate Qualified Code(s): G20.A1 - Parkinson's disease without dyskinesia, without mention of fluctuations Plan: He has been on current dose of carbidopa-levodopa 25-100mg 2 tablets three times a day for over a year. It is unlikely that nausea is side effect of medication at this point. Continue carbidopa-levodopa 25-100mg 2 tablets three times a day. (2) Anxiety and depression: Code(s): F41.9 - Anxiety disorder, unspecified; F32.A - Depression, unspecified Category: Medical Plan: Continue sertraline 50mg 1 tablet daily. (3) REM sleep behavior disorder: Code(s): G47.52 - REM sleep behavior disorder Category: Medical Plan: Continue gabapentin 300mg 1 capsule at bedtime. Plan . Coding Level of Care Code Est Pt Level 4 (00044) Diagnoses Parkinson's disease without dyskinesia, unspecified whether manifestations fluctuate G20.A1 Dyskinesia presence: without dyskinesia Fluctuating manifestations: unspecified whether manifestations fluctuate Anxiety and depression F41.9; F32.A REM sleep behavior disorder G47.52
== END 2025-04-19 08:55 | disposition home or self-care (01) ==
LOC: HO.HSM 08:26
PROVIDERS: PCP Physician Assistant; Visit Provider Registered Nurse
DX: G20.A1 Parkinson's disease without dyskinesia, without mention of fluctuations (principal); F41.9 Anxiety disorder, unspecified; F32.A Depression, unspecified; G47.52 REM sleep behavior disorder
CPT/HCPCS: 99214

== ENCOUNTER → 2025-04-19 08:25 | Outpatient (BNVA) | payer MEDICARE, MEDICAID, SELFPAY | PROVIDERS: PCP Physician Assistant; Visit Provider Registered Nurse | DX: G20.A1 Parkinson's disease without dyskinesia, without mention of fluctuations (principal); F41.9 Anxiety disorder, unspecified; F32.A Depression, unspecified; G47.52 REM sleep behavior disorder; Z79.899 Other long term (current) drug therapy | CPT/HCPCS: 99212 ==